=== PATIENT | male | born 1930 | race Caucasian/White ===

== ENCOUNTER → 2016-12-15 | Outpatient (CLI) | payer MEDICARE, MEDICAID ==
[~2016-12-15] MED LIST: ACE650RS PO; ALLO300T2 PO; LEVO100T8 PO; METF500T PO; SIMV-13 PO
[2016-12-15 16:27] LABS: Urine Bilirubin Negative (Negative); Urine Color Yellow (Yellow); Urine Glucose Normal (Normal); Urine Ketone Negative (Negative); Urine Nitrite Negative (Negative); Urine Urobilinogen Normal (Negative)
[2016-12-15 16:29] LABS: Basophils # (auto) 0.1 uL; Basophils % (auto) 0.7 % (0.0-2.0); Eosinophils # (auto) 0.7 uL; Eosinophils % (auto) 7.7 % (0.0-7.0); Hematocrit 42.3 % (41.0-53.0); Hemoglobin 13.4 g/dL (13.5-17.5); Lymphocytes # (auto) 2.2 uL; Lymphocytes % (auto) 25.5 % (10.0-50.0); Mean Corpuscular Hemoglobin 31.4 pg (28.0-32.0); Mean Corpuscular Hgb Conc. 31.7 g/dL (32.0-36.0); Mean Corpuscular Volume 99.2 fL (80.0-100.0); Mean Platelet Volume 10.3 fL (7.4-10.4); Monocytes # (auto) 0.9 uL; Monocytes % (auto) 10.3 % (0.0-12.0); Neutrophils # (auto) 4.9 uL; Neutrophils % (auto) 55.8 % (37.0-80.0); Platelet Count (auto) 166 10^3/uL (140-450); Red Cell Distribution Width 16.4 % (11.6-16.0); White Blood Cell 8.7 10^3/uL (4.4-10.8)
[2016-12-15 16:33] LABS: Urine Blood 1+ /uL (Negative)
[2016-12-15 16:59] LABS: Albumin 3.7 g/dL (3.4-5.0); Alkaline Phosphatase 72 U/L (45-117); Anion Gap 8 (5-15); Aspartate Aminotransferase 23 U/L (15-37); BUN/Creatinine Ratio 18.9; Bilirubin, Direct < 0.1 mg/dL (0-0.2); Bilirubin, Total 0.4 mg/dL (0.2-1.0); Blood Urea Nitrogen 35 mg/dL (7-18); Calcium 8.7 mg/dL (8.5-10.1); Carbon Dioxide 25 mmol/L (21-32); Chloride 107 mmol/L (98-107); Cholesterol 147 mg/dL (<200); GFR African American 45 mL/min; GFR Non-African American 37 mL/min; Glucose 103 mg/dL (74-106); HDL Cholesterol 35 mg/dL (40-59); LDL Cholesterol 77 mg/dL (<100); Potassium 4.6 mmol/L (3.5-5.1); Sodium 140 mmol/L (136-145); Total Protein 7.1 g/dL (6.4-8.2); Triglycerides 334 mg/dL (<150)
== END ==
LOC: LAB 13:31
PROVIDERS: ATTEND Internal Medicine Cardiovascular Disease
DX: I10 Essential (primary) hypertension (principal); E78.00 Pure hypercholesterolemia, unspecified; K74.1 Hepatic sclerosis; E11.9 Type 2 diabetes mellitus without complications; R97.20 Elevated prostate specific antigen [PSA]; R53.81 Other malaise; E03.9 Hypothyroidism, unspecified; D64.9 Anemia, unspecified; E55.9 Vitamin D deficiency, unspecified; N39.0 Urinary tract infection, site not specified
CPT/HCPCS: 36415; 80048; 80061; 80076; 81003; 82306; 83036; 84153; 84403; 84443; 85025

== ENCOUNTER → 2017-04-21 | Outpatient (CLI) | payer MEDICARE, MEDICAID ==
[2017-04-21 13:06] LABS: Calcium 8.8 mg/dL (8.5-10.1); Potassium 4.6 mmol/L (3.5-5.1)
[2017-04-21 13:09] LABS: BUN/Creatinine Ratio 18.9
== END | disposition home or self-care (01) ==
LOC: Rad HDHVI 08:17
PROVIDERS: ATTEND Internal Medicine Cardiovascular Disease
DX: I10 Essential (primary) hypertension (principal); E87.5 Hyperkalemia
CPT/HCPCS: 36415; 80048; 93306

== ENCOUNTER → 2017-05-20 | Outpatient (CLI) | payer MEDICARE, MEDICAID ==
[~2017-05-20] VITALS: Ht 177.8 cm; Wt 90.7 kg
[~2017-05-20] MED LIST changes: +ALL300T PO; +AML5T PO; +BENA10TA53 PO; +FINA1TAB10 OR; +HCTZ25T PO; +LEVO100I PO
[2017-05-20 08:25] VITALS: BP 150/82
[2017-05-20 08:50] VITALS: BP 142/80
[2017-05-20 12:27] LABS: Basophils # (auto) 0 uL; Basophils % (auto) 0.5 % (0.0-2.0); CONDITION Y; DEFINITIVE SEE PRINTOUT; Eosinophils # (auto) 0.8 uL; Eosinophils % (auto) 10.4 % (0.0-7.0); Hematocrit 37.5 % (41.0-53.0); Hemoglobin 12.7 g/dL (13.5-17.5); Lymphocytes # (auto) 1.8 uL; Lymphocytes % (auto) 23.5 % (10.0-50.0); Mean Corpuscular Hemoglobin 32.9 pg (28.0-32.0); Mean Corpuscular Hgb Conc. 33.8 g/dL (32.0-36.0); Mean Corpuscular Volume 97.3 fL (80.0-100.0); Monocytes # (auto) 0.8 uL; Monocytes % (auto) 10.1 % (0.0-12.0); Neutrophils # (auto) 4.1 uL; Neutrophils % (auto) 55.5 % (37.0-80.0); Platelet Count (auto) 147 10^3/uL (140-450); Red Cell Distribution Width 16.7 % (11.6-16.0); White Blood Cell 7.5 10^3/uL (4.4-10.8)
[2017-05-20 12:46] LABS: INR 0.97 (0.9-1.15); Partial Thromboplastin Time 26.1 sec (22.64-33.71); Prothrombin Time 10.6 sec (9.37-12.3)
[2017-05-20 12:57] LABS: BUN/Creatinine Ratio 16.3; Calcium 8.3 mg/dL (8.5-10.1); Potassium 4.4 mmol/L (3.5-5.1)
== END | disposition home or self-care (01) ==
LOC: Rad HDHVI 08:00
PROVIDERS: ATTEND Internal Medicine Cardiovascular Disease
DX: Z01.812 Encounter for preprocedural laboratory examination (principal); I70.0 Atherosclerosis of aorta; J98.11 Atelectasis; I10 Essential (primary) hypertension; I25.10 Atherosclerotic heart disease of native coronary artery without angina pectoris; J44.9 Chronic obstructive pulmonary disease, unspecified; D64.9 Anemia, unspecified; R07.9 Chest pain, unspecified; R79.1 Abnormal coagulation profile; Z95.0 Presence of cardiac pacemaker
CPT/HCPCS: 36415; 71020; 80048; 85025; 85610; 85730; 93005; G0463

== ENCOUNTER → 2017-05-21 | Day surgery (SDC) | payer MEDICARE, MEDICAID ==
[~2017-05-21] MED LIST changes: +ACET-1156 PO; +ANGIOMAX 250 MG VIAL IV ONE; +FURO40TA PO; +IOHEXOL 350 MG/ML 100ML IJ ONE; +LEVO88TA4 PO; +LIDOCAINE 2%HCL (LOCAL ANESTH.) INJ 20ML MDV ONE; +OMEP20CA74 PO; +POTA10SO11 GT; +POTA10TA51 PO; +POTA20TA53 PO; +SODIUM CHL 0.9% 0 ML ONE
== END | disposition home or self-care (01) ==
LOC: CATH 08:57
PROVIDERS: ATTEND Internal Medicine Cardiovascular Disease
DX: I25.10 Atherosclerotic heart disease of native coronary artery without angina pectoris (principal); I10 Essential (primary) hypertension; I48.91 Unspecified atrial fibrillation; N40.0 Benign prostatic hyperplasia without lower urinary tract symptoms; E78.5 Hyperlipidemia, unspecified; E03.9 Hypothyroidism, unspecified; M10.9 Gout, unspecified
CPT/HCPCS: 93458; C1760; C1894; J1644; J7030; Q9967; 99152

== ENCOUNTER → 2017-06-23 | Outpatient (CLI) | payer MEDICARE, MEDICAID ==
[~2017-06-23] VITALS: Ht 177.8 cm; Wt 90.7 kg
[~2017-06-23] MED LIST changes: -ANGIOMAX 250 MG VIAL IV ONE; -IOHEXOL 350 MG/ML 100ML IJ ONE; -LIDOCAINE 2%HCL (LOCAL ANESTH.) INJ 20ML MDV ONE; -SODIUM CHL 0.9% 0 ML ONE
[2017-06-23 10:20] VITALS: BP 124/68
[2017-06-23 11:20] VITALS: BP 141/66
[2017-06-23 12:27] LABS: INR 0.96 (0.9-1.15); Partial Thromboplastin Time 25.5 sec (22.64-33.71); Prothrombin Time 10.5 sec (9.37-12.3)
[2017-06-23 12:48] LABS: Basophils # (auto) 0.1 uL; Basophils % (auto) 0.6 % (0.0-2.0); CONDITION Y; DEFINITIVE SEE PRINTOUT; Eosinophils # (auto) 0.9 uL; Eosinophils % (auto) 10.7 % (0.0-7.0); Hematocrit 38.4 % (41.0-53.0); Hemoglobin 12.9 g/dL (13.5-17.5); Lymphocytes # (auto) 1.4 uL; Lymphocytes % (auto) 17.4 % (10.0-50.0); Mean Corpuscular Hemoglobin 33.1 pg (28.0-32.0); Mean Corpuscular Hgb Conc. 33.6 g/dL (32.0-36.0); Mean Corpuscular Volume 98.5 fL (80.0-100.0); Mean Platelet Volume 9.9 fL (7.4-10.4); Monocytes # (auto) 0.7 uL; Monocytes % (auto) 8.6 % (0.0-12.0); Neutrophils # (auto) 5.2 uL; Neutrophils % (auto) 62.7 % (37.0-80.0); Platelet Count (auto) 149 10^3/uL (140-450); Red Cell Distribution Width 16.9 % (11.6-16.0); White Blood Cell 8.3 10^3/uL (4.4-10.8)
[2017-06-23 12:49] LABS: Calcium 8.7 mg/dL (8.5-10.1); Potassium 4.4 mmol/L (3.5-5.1)
== END | disposition home or self-care (01) ==
LOC: CHF HDHVI 09:54
PROVIDERS: ATTEND Internal Medicine Cardiovascular Disease
DX: Z01.812 Encounter for preprocedural laboratory examination (principal); I10 Essential (primary) hypertension; D64.9 Anemia, unspecified; R79.1 Abnormal coagulation profile; I25.10 Atherosclerotic heart disease of native coronary artery without angina pectoris; I70.0 Atherosclerosis of aorta; E78.00 Pure hypercholesterolemia, unspecified
CPT/HCPCS: 36415; 80048; 85025; 85610; 85730; 93005; G0463

== ENCOUNTER → 2017-07-07 | Outpatient (CLI) | payer MEDICARE, MEDICAID ==
[~2017-07-07] MED LIST changes: -ACE650RS PO; -ALL300T PO; -FINA1TAB10 OR; -HCTZ25T PO; -LEVO100I PO; -LEVO100T8 PO; -POTA10SO11 GT; -POTA10TA51 PO
== END | disposition home or self-care (01) ==
LOC: Rad HDHVI 13:33
PROVIDERS: ATTEND Internal Medicine Cardiovascular Disease
DX: M79.89 Other specified soft tissue disorders (principal)
CPT/HCPCS: 93971

== ENCOUNTER → 2017-07-09 | Outpatient (CLI) | payer MEDICARE, MEDICAID ==
[2017-07-09 09:50] VITALS: BP 144/60
[2017-07-09 12:10] VITALS: BP 150/64
== END | disposition home or self-care (01) ==
LOC: CHF HDHVI 09:51
PROVIDERS: ATTEND Internal Medicine Cardiovascular Disease
DX: I42.9 Cardiomyopathy, unspecified (principal); R60.9 Edema, unspecified; Z95.810 Presence of automatic (implantable) cardiac defibrillator
CPT/HCPCS: G0463

== ENCOUNTER → 2017-07-22 | Outpatient (CLI) | payer MEDICARE, MEDICAID ==
[2017-07-22 16:32] LABS: Albumin 3.9 g/dL (3.4-5.0); Calcium 9.2 mg/dL (8.5-10.1); Potassium 4.2 mmol/L (3.5-5.1)
[2017-07-22 16:37] LABS: BUN/Creatinine Ratio 18.8; Bilirubin, Total 0.4 mg/dL (0.2-1.0); Total Protein 6.9 g/dL (6.4-8.2)
== END | disposition home or self-care (01) ==
LOC: LAB 09:13
PROVIDERS: ATTEND Internal Medicine Cardiovascular Disease
DX: I10 Essential (primary) hypertension (principal); E11.9 Type 2 diabetes mellitus without complications; R97.20 Elevated prostate specific antigen [PSA]
CPT/HCPCS: 36415; 80053; 83036; 84153

== ENCOUNTER → 2017-08-11 | Outpatient (CLI) | payer MEDICARE, MEDICAID ==
[~2017-08-11] MED LIST changes: +CYANOCOBALAMIN (B-12) 1000 MCG/1 ML VIAL IM ONE; +CYANOCOBALAMIN (B-12) 1000 MCG/1 ML VIAL ONE
[2017-08-11 11:25] VITALS: BP 138/88
[2017-08-11 13:01] VITALS: BP 147/92
[2017-08-11 16:21] LABS: Basophils # (auto) 0 uL; Basophils % (auto) 0.4 % (0.0-2.0); Eosinophils # (auto) 0.2 uL; Eosinophils % (auto) 1.5 % (0.0-7.0); Hematocrit 41.8 % (41.0-53.0); Hemoglobin 13.8 g/dL (13.5-17.5); Lymphocytes # (auto) 2.3 uL; Lymphocytes % (auto) 20.6 % (10.0-50.0); Mean Corpuscular Hemoglobin 33.7 pg (28.0-32.0); Mean Corpuscular Hgb Conc. 33.1 g/dL (32.0-36.0); Mean Corpuscular Volume 101.8 fL (80.0-100.0); Mean Platelet Volume 11.9 fL (6.9-10.8); Monocytes # (auto) 1.3 uL; Monocytes % (auto) 11.2 % (0.0-12.0); Neutrophils # (auto) 7.4 uL; Neutrophils % (auto) 66.3 % (37.0-80.0); Nucleated Red Blood Cells % 0.1 %; Platelet Count (auto) 100 10^3/uL (140-450); Red Cell Distribution Width 15.3 % (11.8-14.3); White Blood Cell 11.2 10^3/uL (4.4-10.8)
[2017-08-11 16:23] LABS: Albumin 3.8 g/dL (3.4-5.0); BUN/Creatinine Ratio 31.1; Bilirubin, Total 0.5 mg/dL (0.2-1.0); Calcium 9.2 mg/dL (8.5-10.1); Potassium 3.6 mmol/L (3.5-5.1); Total Protein 7.3 g/dL (6.4-8.2)
[2017-08-11 18:07] LABS: Macrocytosis Slight; Platelet Estimate Decreased
== END | disposition home or self-care (01) ==
LOC: CHF HDHVI 11:40
PROVIDERS: ATTEND Internal Medicine Cardiovascular Disease
DX: I10 Essential (primary) hypertension (principal); E83.42 Hypomagnesemia; D64.9 Anemia, unspecified; E03.9 Hypothyroidism, unspecified
CPT/HCPCS: 36415; 80053; 83735; 84443; 85025; 93005; 96372; G0463; J3420

== ENCOUNTER → 2017-08-13 | Outpatient (CLI) | payer MEDICARE, MEDICAID ==
[~2017-08-13] MED LIST changes: -CYANOCOBALAMIN (B-12) 1000 MCG/1 ML VIAL IM ONE; -CYANOCOBALAMIN (B-12) 1000 MCG/1 ML VIAL ONE; +POTASSIUM CHL 20 Meq TABLET PO ONE; +SODIUM CHLORIDE 0.9% 1,000 ML IV SCH
[2017-08-13 10:07] LABS: Basophils # (auto) 0 uL; Basophils % (auto) 0.5 % (0.0-2.0); Eosinophils # (auto) 0.1 uL; Eosinophils % (auto) 1.7 % (0.0-7.0); Hematocrit 40.4 % (41.0-53.0); Hemoglobin 13.5 g/dL (13.5-17.5); Lymphocytes # (auto) 1.8 uL; Lymphocytes % (auto) 20.6 % (10.0-50.0); Mean Corpuscular Hemoglobin 33.9 pg (28.0-32.0); Mean Corpuscular Hgb Conc. 33.4 g/dL (32.0-36.0); Mean Corpuscular Volume 101.5 fL (80.0-100.0); Mean Platelet Volume 10.9 fL (6.9-10.8); Monocytes # (auto) 0.6 uL; Monocytes % (auto) 6.9 % (0.0-12.0); Neutrophils # (auto) 6.1 uL; Neutrophils % (auto) 70.3 % (37.0-80.0); Platelet Count (auto) 91 10^3/uL (140-450); Red Cell Distribution Width 15.2 % (11.8-14.3); White Blood Cell 8.7 10^3/uL (4.4-10.8)
[2017-08-13 10:12] LABS: Magnesium 2.6 mg/dL (1.6-2.6); Potassium 3.4 mmol/L (3.5-5.1)
[2017-08-13 10:14] LABS: Macrocytosis Slight; Platelet Estimate Decreased
[2017-08-13 12:15] VITALS: BP 115/72
== END | disposition home or self-care (01) ==
LOC: CHF HDHVI 09:12
PROVIDERS: ATTEND Internal Medicine Cardiovascular Disease
DX: E87.6 Hypokalemia (principal); R94.4 Abnormal results of kidney function studies; E83.42 Hypomagnesemia; D64.9 Anemia, unspecified
CPT/HCPCS: 36415; 82565; 83735; 84132; 84520; 85025; 93005; 96360; 96361; G0463

== ENCOUNTER → 2017-08-17 | Outpatient (CLI) | payer MEDICARE, MEDICAID ==
[~2017-08-17] MED LIST changes: +POTASSIUM CHL 10 Meq TABLET PO ONE; -SODIUM CHLORIDE 0.9% 1,000 ML IV SCH
[2017-08-17 10:40] VITALS: BP 114/72
== END | disposition home or self-care (01) ==
LOC: CHF HDHVI 09:36
PROVIDERS: ATTEND Internal Medicine Cardiovascular Disease
DX: I50.9 Heart failure, unspecified (principal)
CPT/HCPCS: 93005; G0463

== ENCOUNTER → 2017-08-25 | Outpatient (CLI) | payer MEDICARE, MEDICAID ==
[~2017-08-25] MED LIST changes: +CYANOCOBALAMIN (B-12) 1000 MCG/1 ML VIAL IM ONE; +CYANOCOBALAMIN (B-12) 1000 MCG/1 ML VIAL ONE; -POTASSIUM CHL 10 Meq TABLET PO ONE; -POTASSIUM CHL 20 Meq TABLET PO ONE
[2017-08-25 09:30] VITALS: BP 146/82
[2017-08-25 13:02] LABS: BUN/Creatinine Ratio 12.9; Calcium 8.7 mg/dL (8.5-10.1); Magnesium 1.9 mg/dL (1.6-2.6); Potassium 4.7 mmol/L (3.5-5.1)
== END | disposition home or self-care (01) ==
LOC: CHF HDHVI 09:04
PROVIDERS: ATTEND Internal Medicine Cardiovascular Disease
DX: I10 Essential (primary) hypertension (principal); E83.42 Hypomagnesemia
CPT/HCPCS: 36415; 80048; 83735; 96372; G0463; J3420

== ENCOUNTER → 2017-09-01 | Outpatient (CLI) | payer MEDICARE, MEDICAID ==
[~2017-09-01] MED LIST changes: +MAGNESIUM OXIDE 400 MG TAB ONE; +MAGNESIUM OXIDE 400 MG TAB PO ONE; +TESTOSTERONE CYPIONATE 200 MG/ML 1ML VIAL IM ONE
[2017-09-01 09:00] VITALS: BP 137/67
[2017-09-02 11:00] VITALS: BP 147/88
== END | disposition home or self-care (01) ==
LOC: CHF HDHVI 09:03
PROVIDERS: ATTEND Internal Medicine Cardiovascular Disease
DX: I50.9 Heart failure, unspecified (principal); E29.1 Testicular hypofunction
CPT/HCPCS: 96372; G0463; J1071; J3420

== ENCOUNTER → 2017-09-15 | Outpatient (CLI) | payer MEDICARE, MEDICAID ==
[~2017-09-15] MED LIST changes: -CYANOCOBALAMIN (B-12) 1000 MCG/1 ML VIAL IM ONE; -CYANOCOBALAMIN (B-12) 1000 MCG/1 ML VIAL ONE; -MAGNESIUM OXIDE 400 MG TAB ONE; -MAGNESIUM OXIDE 400 MG TAB PO ONE
[2017-09-15 09:45] VITALS: BP 137/63
[2017-09-15 10:15] VITALS: BP 144/65
== END | disposition home or self-care (01) ==
LOC: CHF HDHVI 10:03
PROVIDERS: ATTEND Internal Medicine Cardiovascular Disease
DX: I50.9 Heart failure, unspecified (principal); E29.1 Testicular hypofunction
CPT/HCPCS: 96372; G0463; J1071

== ENCOUNTER → 2017-10-06 | Outpatient (CLI) | payer MEDICARE, MEDICAID ==
[~2017-10-06] VITALS: Ht 30.5 cm; Wt 0.5 kg
[2017-10-06 09:45] VITALS: BP 137/63
[2017-10-06 10:15] VITALS: BP 144/65
[2017-10-06 13:15] LABS: Potassium 4.4 mmol/L (3.5-5.1)
== END | disposition home or self-care (01) ==
LOC: CHF HDHVI 08:57
PROVIDERS: ATTEND Internal Medicine Cardiovascular Disease
DX: I25.10 Atherosclerotic heart disease of native coronary artery without angina pectoris (principal); E29.1 Testicular hypofunction; E55.9 Vitamin D deficiency, unspecified; R94.4 Abnormal results of kidney function studies; I95.9 Hypotension, unspecified
CPT/HCPCS: 36415; 82565; 82607; 84132; 84520; 96372; G0463; J1071

== ENCOUNTER → 2017-12-07 | Outpatient (CLI) | payer MEDICARE, MEDICAID ==
[2017-12-07 09:45] VITALS: BP 139/66
[2017-12-07 10:15] VITALS: BP 130/64
== END | disposition home or self-care (01) ==
LOC: CHF HDHVI 09:46
PROVIDERS: ATTEND Internal Medicine Cardiovascular Disease
DX: I25.10 Atherosclerotic heart disease of native coronary artery without angina pectoris (principal); E29.1 Testicular hypofunction
CPT/HCPCS: 96372; G0463; J1071

== ENCOUNTER → 2018-02-11 | Outpatient (CLI) | payer MEDICARE, MEDICAID ==
[~2018-02-11] MED LIST changes: -TESTOSTERONE CYPIONATE 200 MG/ML 1ML VIAL IM ONE
== END | disposition home or self-care (01) ==
LOC: Rad HDHVI 09:06
PROVIDERS: ATTEND Internal Medicine Cardiovascular Disease
DX: I08.3 Combined rheumatic disorders of mitral, aortic and tricuspid valves (principal); E11.9 Type 2 diabetes mellitus without complications; I10 Essential (primary) hypertension
CPT/HCPCS: 93306

== ENCOUNTER → 2018-03-04 | Outpatient (CLI) | payer MEDICARE, MEDICAID ==
[~2018-03-04] VITALS: Ht 177.8 cm; Wt 84.4 kg
[~2018-03-04] MED LIST changes: +ADENOSINE 71 MG in GIVE UN-DILUTED 0 ML IV ONE; +ADENOSINE 90 MG/30 ML INJ IV ONE
== END | disposition home or self-care (01) ==
LOC: Rad HDHVI 09:25
PROVIDERS: ATTEND Internal Medicine Cardiovascular Disease
DX: E11.21 Type 2 diabetes mellitus with diabetic nephropathy (principal); E11.22 Type 2 diabetes mellitus with diabetic chronic kidney disease; I12.9 Hypertensive chronic kidney disease with stage 1 through stage 4 chronic kidney disease, or unspecified chronic kidney disease; N18.3 Chronic kidney disease, stage 3 (moderate); R07.9 Chest pain, unspecified; I08.3 Combined rheumatic disorders of mitral, aortic and tricuspid valves
CPT/HCPCS: 78452; 93005; 96374; 96375; J0153

== ENCOUNTER 2018-03-29 16:17 | Inpatient (IN) | payer MEDICARE, MEDICAID ==
[~2018-03-29] VITALS: Ht 177.8 cm; Wt 123.0 kg
[~2018-03-29 16:17] MED LIST changes: -SODIUM CHLORIDE 0.9% 1,000 ML IV SCH
[2018-03-29 16:25] VITALS: BP 113/69
[2018-03-29] MEDS ORDERED: MORPHINE SULFATE 4 MG/ML SYR/VIAL IV PRN (17:15)
[2018-03-29] MEDS ORDERED: DEXTROSE (50%) 50ML SYRG IV PRN (17:15)
[2018-03-29] MEDS ORDERED: NITROGLYCERIN 0.4 MG SL TAB SL PRN (17:15)
[2018-03-29] MEDS: SODIUM CHLORIDE 0.9% 1,000 ML IV SCH (17:38)
[2018-03-29] MEDS ORDERED: SODIUM POLYSTYRENE SULF 15GM/60ML SUSP PO ONE ×2 (19:00→19:15)
[2018-03-29 20:00] VITALS: BP 109/58
[2018-03-29 22:00] VITALS: BP 109/50
[2018-03-29] MEDS: InsuLIN REG 1unit/0.01ml Soln (100units/ml) SC SCH (22:00)
[2018-03-29] MEDS: FAMOTIDINE 20 MG TAB PO SCH (22:16)
[2018-03-29] MEDS: SOTALOL HCL 80 MG TAB PO SCH (22:18)
[2018-03-29] MEDS: ACCU-CHEK COMFORT CURVE STRIP VI SCH (22:21)
[2018-03-30] MEDS: SODIUM CHLORIDE 0.9% 1,000 ML IV SCH ×3 (03:15→23:51)
[2018-03-30 05:15] VITALS: BP 113/72
[2018-03-30 05:35] LABS: Eosinophils # (auto) 0.4 uL; Lymphocytes # (auto) 0.6 uL; White Blood Cell 7.9 10^3/uL (4.4-10.8)
[2018-03-30 05:41] LABS: Basophils # (auto) 0.1 uL; Basophils % (auto) 1.1 % (0.0-2.0); Eosinophils % (auto) 4.6 % (0.0-7.0); Hematocrit 32.2 % (41.0-53.0); Hemoglobin 10.8 g/dL (13.5-17.5); Lymphocytes % (auto) 7.1 % (10.0-50.0); Mean Corpuscular Hemoglobin 34.3 pg (28.0-32.0); Mean Corpuscular Hgb Conc. 33.6 g/dL (32.0-36.0); Mean Corpuscular Volume 101.8 fL (80.0-100.0); Monocytes # (auto) 0.9 uL; Monocytes % (auto) 11.5 % (0.0-12.0); Neutrophils % (auto) 75.7 % (37.0-80.0); Platelet Count (auto) 76 10^3/uL (140-450); Red Blood Cells 3.16 10^6/uL (4.5-5.90); Red Cell Distribution Width 16.1 % (11.8-14.3)
[2018-03-30 06:07] LABS: BUN/Creatinine Ratio 23.8
[2018-03-30] MEDS: InsuLIN REG 1unit/0.01ml Soln (100units/ml) SC SCH ×4 (06:31→21:46)
[2018-03-30] MEDS: ACCU-CHEK COMFORT CURVE STRIP VI SCH ×4 (06:31→21:46)
[2018-03-30 08:00] VITALS: BP_SYST 112; BP_SYST 127; BP_DIAS 70; BP_DIAS 79
[2018-03-30] MEDS: SOTALOL HCL 80 MG TAB PO SCH ×2 (09:27→21:39)
[2018-03-30] MEDS: FAMOTIDINE 20 MG TAB PO SCH ×2 (09:28→21:39)
[2018-03-30] MEDS: guaiFENesin 200 MG/10 ML UD GT PRN ×2 (11:08→18:28)
[2018-03-30 12:31] VITALS: BP 102/69
[2018-03-30] MEDS ORDERED: SODIUM POLYSTYRENE SULF 15GM/60ML SUSP PO ONE (14:15)
[2018-03-30 16:33] VITALS: BP 112/72
[2018-03-30] MEDS ORDERED: LORazepam 0.5 MG TAB PO PRN (19:15)
[2018-03-30 20:00] VITALS: BP 102/62
[2018-03-30 21:42] VITALS: BP 100/62
[2018-03-31] VITALS (7 sets, daily range): BP systolic 92–122; BP diastolic 52–71
[2018-03-31] MEDS: ACCU-CHEK COMFORT CURVE STRIP VI SCH ×4 (06:26→22:20)
[2018-03-31] MEDS: InsuLIN REG 1unit/0.01ml Soln (100units/ml) SC SCH ×4 (06:26→22:00)
[2018-03-31] MEDS: SODIUM CHLORIDE 0.9% 1,000 ML IV SCH ×2 (09:15→19:15)
[2018-03-31] MEDS: SOTALOL HCL 80 MG TAB PO SCH ×2 (10:00→22:20)
[2018-03-31] MEDS: FAMOTIDINE 20 MG TAB PO SCH ×2 (10:30→22:20)
[2018-03-31 18:45] LABS: Basophils # (auto) 0.1 uL; Lymphocytes # (auto) 1.5 uL; Monocytes # (auto) 1.3 uL; Nucleated Red Blood Cells % 0.1 %; Red Blood Cells 3.53 10^6/uL (4.5-5.90); Red Cell Distribution Width 16.5 % (11.8-14.3)
[2018-03-31 18:46] LABS: Basophils % (auto) 0.6 % (0.0-2.0); Eosinophils # (auto) 0.2 uL; Eosinophils % (auto) 2.4 % (0.0-7.0); Hematocrit 36.2 % (41.0-53.0); Lymphocytes % (auto) 14.4 % (10.0-50.0); Mean Corpuscular Hemoglobin 34.1 pg (28.0-32.0); Mean Corpuscular Hgb Conc. 33.3 g/dL (32.0-36.0); Mean Corpuscular Volume 102.4 fL (80.0-100.0); Monocytes % (auto) 12.5 % (0.0-12.0); Neutrophils # (auto) 7.2 uL; Neutrophils % (auto) 70.1 % (37.0-80.0); Platelet Count (auto) 114 10^3/uL (140-450); White Blood Cell 10.2 10^3/uL (4.4-10.8)
[2018-03-31 19:04] LABS: BUN/Creatinine Ratio 23.7; Calcium 8.2 mg/dL (8.5-10.1); Potassium 4.8 mmol/L (3.5-5.1)
[2018-04-01 05:00] VITALS: BP 121/72
[2018-04-01] MEDS: SODIUM CHLORIDE 0.9% 1,000 ML IV SCH ×2 (05:27→15:38)
[2018-04-01] MEDS: InsuLIN REG 1unit/0.01ml Soln (100units/ml) SC SCH ×4 (06:12→22:00)
[2018-04-01] MEDS: ACCU-CHEK COMFORT CURVE STRIP VI SCH ×4 (06:12→22:15)
[2018-04-01 08:00] VITALS: BP 99/63
[2018-04-01 09:28] VITALS: BP 99/53
[2018-04-01] MEDS: FAMOTIDINE 20 MG TAB PO SCH ×2 (10:00→22:15)
[2018-04-01] MEDS: SOTALOL HCL 80 MG TAB PO SCH ×2 (10:00→22:15)
[2018-04-01 13:00] VITALS: BP 113/73
[2018-04-01 16:55] VITALS: BP 117/69
[2018-04-01 18:59] LABS: BUN/Creatinine Ratio 24.7; Calcium 8.1 mg/dL (8.5-10.1); Potassium 4.8 mmol/L (3.5-5.1)
[2018-04-01 22:00] VITALS: BP 128/81
[2018-04-02] MEDS: SODIUM CHLORIDE 0.9% 1,000 ML IV SCH ×2 (00:33→11:57)
[2018-04-02 05:15] VITALS: BP 100/61
[2018-04-02] MEDS: InsuLIN REG 1unit/0.01ml Soln (100units/ml) SC SCH ×3 (06:25→17:00)
[2018-04-02] MEDS: ACCU-CHEK COMFORT CURVE STRIP VI SCH ×3 (06:26→17:36)
[2018-04-02 08:00] VITALS: BP 122/75
[2018-04-02 08:51] VITALS: BP 124/49
[2018-04-02 09:02] VITALS: BP 122/75
[2018-04-02] MEDS ORDERED: DOCUSATE SOD 100 MG CAP PO SCH (10:00)
[2018-04-02] MEDS: SOTALOL HCL 80 MG TAB PO SCH (10:05)
[2018-04-02] MEDS: FAMOTIDINE 20 MG TAB PO SCH (10:05)
[2018-04-02 13:00] VITALS: BP 107/63
[2018-04-02 15:00] LABS: BUN/Creatinine Ratio 24.2; Potassium 4.6 mmol/L (3.5-5.1)
[2018-04-02 16:22] VITALS: BP 122/75
== END 2018-04-02 18:38 | disposition home health service (06) | DRG 682 ==
LOC: CENTRAL 16:17 → TELE-CENTR 03-30 01:10
PROVIDERS: ADMIT Internal Medicine Cardiovascular Disease; ATTEND Internal Medicine Cardiovascular Disease
DX: N17.9 Acute kidney failure, unspecified (principal); I50.23 Acute on chronic systolic (congestive) heart failure; I42.0 Dilated cardiomyopathy; E87.5 Hyperkalemia; I49.5 Sick sinus syndrome; E86.9 Volume depletion, unspecified; I48.91 Unspecified atrial fibrillation; D64.9 Anemia, unspecified; E78.5 Hyperlipidemia, unspecified; I25.10 Atherosclerotic heart disease of native coronary artery without angina pectoris; K52.9 Noninfective gastroenteritis and colitis, unspecified; I11.0 Hypertensive heart disease with heart failure; Z95.810 Presence of automatic (implantable) cardiac defibrillator; Z71.3 Dietary counseling and surveillance
CPT/HCPCS: 36415; 71046; 74176; 80048; 80053; 80061; 81003; 82306; 82607; 82962; 83036; 83735; 83880; 84153; 84403; 84439; 84443; 85025; 87081; 93005; 96360; 96361; 97163; G0463; J1815

== ENCOUNTER → 2018-03-29 | Outpatient (CLI) | payer MEDICARE, MEDICAID ==
[~2018-03-29] MED LIST changes: -ADENOSINE 71 MG in GIVE UN-DILUTED 0 ML IV ONE; -ADENOSINE 90 MG/30 ML INJ IV ONE; +SODIUM CHLORIDE 0.9% 1,000 ML IV SCH
[2018-03-29 10:41] LABS: Basophils # (auto) 0.1 uL; Basophils % (auto) 0.5 % (0.0-2.0); Eosinophils # (auto) 0.6 uL; Eosinophils % (auto) 5.4 % (0.0-7.0); Hematocrit 37.1 % (41.0-53.0); Hemoglobin 11.9 g/dL (13.5-17.5); Lymphocytes # (auto) 1.6 uL; Lymphocytes % (auto) 13.6 % (10.0-50.0); Mean Corpuscular Hemoglobin 32.9 pg (28.0-32.0); Mean Corpuscular Hgb Conc. 32.1 g/dL (32.0-36.0); Mean Corpuscular Volume 102.7 fL (80.0-100.0); Monocytes # (auto) 1.2 uL; Monocytes % (auto) 10.8 % (0.0-12.0); Neutrophils # (auto) 7.9 uL; Neutrophils % (auto) 69.7 % (37.0-80.0); Platelet Count (auto) 118 10^3/uL (140-450); Red Blood Cells 3.61 10^6/uL (4.5-5.90); Red Cell Distribution Width 16.7 % (11.8-14.3); White Blood Cell 11.4 10^3/uL (4.4-10.8)
[2018-03-29 10:43] LABS: Urine Blood Negative /uL (Negative); Urine Specific Gravity 1.014 (1.001-1.035)
[2018-03-29 10:58] LABS: Free T4 (Free Thyroxine) 1.36 ng/dL (0.89-1.76); Prostate Specific Antigen 2.64 ng/mL (0.0-4.0)
[2018-03-29 12:01] LABS: Albumin 3.8 g/dL (3.4-5.0); BUN/Creatinine Ratio 19.8; Bilirubin, Total 0.5 mg/dL (0.2-1.0); Calcium 8.5 mg/dL (8.5-10.1); Magnesium 2.5 mg/dL (1.6-2.6)
[2018-03-29 13:12] LABS: Potassium 5.6 mmol/L (3.5-5.1)
[2018-03-29 16:05] VITALS: BP 111/63
== END | disposition home or self-care (01) ==
LOC: Rad HDHVI 08:54
PROVIDERS: ATTEND Internal Medicine Cardiovascular Disease
DX: I13.0 Hypertensive heart and chronic kidney disease with heart failure and stage 1 through stage 4 chronic kidney disease, or unspecified chronic kidney disease (principal); E11.22 Type 2 diabetes mellitus with diabetic chronic kidney disease; E11.42 Type 2 diabetes mellitus with diabetic polyneuropathy; N18.3 Chronic kidney disease, stage 3 (moderate); I50.21 Acute systolic (congestive) heart failure; E78.5 Hyperlipidemia, unspecified; D64.9 Anemia, unspecified; E03.9 Hypothyroidism, unspecified; E55.9 Vitamin D deficiency, unspecified; R53.81 Other malaise; N28.1 Cyst of kidney, acquired; K40.90 Unilateral inguinal hernia, without obstruction or gangrene, not specified as recurrent; J90 Pleural effusion, not elsewhere classified; K57.30 Diverticulosis of large intestine without perforation or abscess without bleeding; K44.9 Diaphragmatic hernia without obstruction or gangrene; I70.0 Atherosclerosis of aorta; R18.8 Other ascites; R97.20 Elevated prostate specific antigen [PSA]; D51.9 Vitamin B12 deficiency anemia, unspecified; R94.31 Abnormal electrocardiogram [ECG] [EKG]; N39.0 Urinary tract infection, site not specified; M47.896 Other spondylosis, lumbar region; I48.91 Unspecified atrial fibrillation; Z95.810 Presence of automatic (implantable) cardiac defibrillator
CPT/HCPCS: 36415; 71046; 74176; 80053; 80061; 81003; 82306; 82607; 83036; 83735; 84153; 84403; 84439; 84443; 85025; 93005; 96360; 96361; G0463

== ENCOUNTER → 2018-04-07 | Outpatient (CLI) | payer MEDICARE, MEDICAID ==
[~2018-04-07] MED LIST changes: +IOHEXOL 350 MG/ML 100ML IJ ONE; +READI-CAT 2 (BARIUM SULF)(VANILLA SMOOTHIE) 450ML ONE
[2018-04-07 15:45] VITALS: BP 114/68
[2018-04-07 16:00] LABS: Potassium 4.6 mmol/L (3.5-5.1)
== END | disposition home or self-care (01) ==
LOC: Rad HDHVI 12:03
PROVIDERS: ATTEND Internal Medicine Cardiovascular Disease
DX: J90 Pleural effusion, not elsewhere classified (principal); R18.8 Other ascites; R10.9 Unspecified abdominal pain; I13.0 Hypertensive heart and chronic kidney disease with heart failure and stage 1 through stage 4 chronic kidney disease, or unspecified chronic kidney disease; I50.23 Acute on chronic systolic (congestive) heart failure; E11.22 Type 2 diabetes mellitus with diabetic chronic kidney disease; N18.3 Chronic kidney disease, stage 3 (moderate); R14.0 Abdominal distension (gaseous); D69.6 Thrombocytopenia, unspecified; I25.10 Atherosclerotic heart disease of native coronary artery without angina pectoris; I48.0 Paroxysmal atrial fibrillation; E78.5 Hyperlipidemia, unspecified; E03.9 Hypothyroidism, unspecified; E87.6 Hypokalemia; Z79.899 Other long term (current) drug therapy; Z95.810 Presence of automatic (implantable) cardiac defibrillator
CPT/HCPCS: 36415; 74177; 82565; 83880; 84132; 84520; 96360; 96361; G0463; Q9967

== ENCOUNTER → 2018-04-23 | Outpatient (CLI) | payer MEDICARE, MEDICAID ==
[~2018-04-23] MED LIST changes: -IOHEXOL 350 MG/ML 100ML IJ ONE; -READI-CAT 2 (BARIUM SULF)(VANILLA SMOOTHIE) 450ML ONE
== END | disposition home or self-care (01) ==
LOC: Rad HDHVI 10:04
PROVIDERS: ATTEND Internal Medicine Cardiovascular Disease
DX: I08.3 Combined rheumatic disorders of mitral, aortic and tricuspid valves (principal); I11.0 Hypertensive heart disease with heart failure; I50.23 Acute on chronic systolic (congestive) heart failure; I25.5 Ischemic cardiomyopathy; E87.6 Hypokalemia; E11.9 Type 2 diabetes mellitus without complications
CPT/HCPCS: 36415; 83036; 84132; 93306

== ENCOUNTER 2018-04-27 13:47 | Inpatient (IN) | payer MEDICARE, MEDICAID ==
[~2018-04-27] VITALS: Ht 177.8 cm; Wt 71.0 kg
[2018-04-27 15:06] LABS: Basophils # (auto) 0 uL; Eosinophils # (auto) 0.2 uL; Lymphocytes # (auto) 1.2 uL; Mean Corpuscular Volume 101.6 fL (80.0-100.0); Monocytes # (auto) 0.9 uL; White Blood Cell 7.5 10^3/uL (4.4-10.8)
[2018-04-27 15:07] LABS: Albumin 3.8 g/dL (3.4-5.0); BUN/Creatinine Ratio 18.4; Calcium 8.4 mg/dL (8.5-10.1); Potassium 5.2 mmol/L (3.5-5.1)
[2018-04-27 15:08] LABS: Basophils % (auto) 0.4 % (0.0-2.0); Eosinophils % (auto) 2.6 % (0.0-7.0); Hematocrit 37.4 % (41.0-53.0); Hemoglobin 12.4 g/dL (13.5-17.5); Lymphocytes % (auto) 16.1 % (10.0-50.0); Mean Corpuscular Hemoglobin 33.7 pg (28.0-32.0); Mean Corpuscular Hgb Conc. 33.1 g/dL (32.0-36.0); Monocytes % (auto) 12.3 % (0.0-12.0); Neutrophils # (auto) 5.1 uL; Neutrophils % (auto) 68.6 % (37.0-80.0); Platelet Count (auto) 65 10^3/uL (140-450); Red Blood Cells 3.68 10^6/uL (4.5-5.90); Red Cell Distribution Width 15.8 % (11.8-14.3)
[2018-04-27 15:12] LABS: Bilirubin, Total 0.4 mg/dL (0.2-1.0)
[2018-04-27] MEDS ORDERED: ACETAMINOPHEN 500 MG TAB PO PRN (18:30)
[2018-04-27] MEDS ORDERED: NITROGLYCERIN 0.4 MG SL TAB SL PRN (18:30)
[2018-04-27] MEDS ORDERED: MORPHINE SULF(PF) 0.5MG/ML 10ML VIAL IV PRN (18:30)
[2018-04-27 23:55] VITALS: BP 116/60
[2018-04-28] VITALS (7 sets, daily range): BP systolic 93–116; BP diastolic 50–69
[2018-04-28] MEDS: TAMSULOSIN HYDROCHLORIDE 0.4 MG CAP PO SCH (10:28)
[2018-04-28] MEDS: CHOLECALCIFEROL (VITD3) 1,000 UNIT TAB PO SCH (10:28)
[2018-04-28] MEDS: PANTOPRAZOLE 40 MG TAB PO SCH (10:28)
[2018-04-28] MEDS: LEVOTHYROXINE SODIUM 88 MCG TAB PO SCH (10:28)
[2018-04-28] MEDS: AMIODARONE HCL 200 MG TAB PO SCH (10:29)
[2018-04-28] MEDS: amLODIPine BESYLATE 5 MG TAB PO SCH (10:29)
[2018-04-28] MEDS: SODIUM CHLORIDE 0.9% 1,000 ML IV SCH (18:30)
[2018-04-28] MEDS: B-COMPLEX W/ C & FOLIC ACID(NEPHROVITE TAB) PO SCH (22:07)
[2018-04-28] MEDS: LORazepam 0.5 MG TAB PO PRN (22:07)
[2018-04-29] VITALS (7 sets, daily range): BP systolic 107–123; BP diastolic 49–68
[2018-04-29] MEDS: SODIUM CHLORIDE 0.9% 1,000 ML IV SCH (04:30)
[2018-04-29] MEDS: B-COMPLEX W/ C & FOLIC ACID(NEPHROVITE TAB) PO SCH (10:47)
[2018-04-29] MEDS: CHOLECALCIFEROL (VITD3) 1,000 UNIT TAB PO SCH (10:47)
[2018-04-29] MEDS: AMIODARONE HCL 200 MG TAB PO SCH (10:47)
[2018-04-29] MEDS: amLODIPine BESYLATE 5 MG TAB PO SCH (10:48)
[2018-04-29] MEDS: LEVOTHYROXINE SODIUM 88 MCG TAB PO SCH (10:49)
[2018-04-29] MEDS: TAMSULOSIN HYDROCHLORIDE 0.4 MG CAP PO SCH (10:49)
[2018-04-29] MEDS: PANTOPRAZOLE 40 MG TAB PO SCH (10:49)
[2018-04-29 12:09] LABS: Albumin 3.4 g/dL (3.4-5.0); BUN/Creatinine Ratio 20.3; Calcium 8.5 mg/dL (8.5-10.1)
[2018-04-29 12:17] LABS: Bilirubin, Total 0.5 mg/dL (0.2-1.0); Total Protein 6.7 g/dL (6.4-8.2)
[2018-04-29] MEDS: FUROSEMIDE 40 MG/4 ML VIAL IV SCH (18:00)
[2018-04-29] MEDS: SODIUM CITR/CITRIC ACID ORAL SOLN 30 ML PO SCH (18:59)
[2018-04-29] MEDS: LORazepam 0.5 MG TAB PO PRN (21:44)
[2018-04-29] MEDS: POTASSIUM CHL 20 Meq TABLET PO SCH (22:00)
[2018-04-29] MEDS: IPRATROPIUM BROM 0.5 MG/2.5ML INH SOL NEB SCH (23:09)
[2018-04-30] VITALS (7 sets, daily range): BP systolic 107–121; BP diastolic 54–63
[2018-04-30] MEDS: FUROSEMIDE 40 MG/4 ML VIAL IV SCH ×2 (06:01→18:00)
[2018-04-30] MEDS: IPRATROPIUM BROM 0.5 MG/2.5ML INH SOL NEB SCH ×3 (06:48→23:00)
[2018-04-30] MEDS: B-COMPLEX W/ C & FOLIC ACID(NEPHROVITE TAB) PO SCH (09:54)
[2018-04-30] MEDS: LEVOTHYROXINE SODIUM 88 MCG TAB PO SCH (09:55)
[2018-04-30] MEDS: amLODIPine BESYLATE 5 MG TAB PO SCH (09:55)
[2018-04-30] MEDS: PANTOPRAZOLE 40 MG TAB PO SCH (09:55)
[2018-04-30] MEDS: AMIODARONE HCL 200 MG TAB PO SCH (09:55)
[2018-04-30] MEDS: TAMSULOSIN HYDROCHLORIDE 0.4 MG CAP PO SCH (09:55)
[2018-04-30] MEDS: CHOLECALCIFEROL (VITD3) 1,000 UNIT TAB PO SCH (09:55)
[2018-04-30] MEDS: SODIUM CITR/CITRIC ACID ORAL SOLN 30 ML PO SCH ×3 (09:56→18:01)
[2018-04-30] MEDS: POTASSIUM CHL 20 Meq TABLET PO SCH ×2 (10:00→22:00)
[2018-04-30] MEDS: DOBUTamine 1000MCG/ML 250 ML IV SCH (15:39)
[2018-05-01] VITALS (7 sets, daily range): BP systolic 112–134; BP diastolic 43–65
[2018-05-01] MEDS: DOBUTamine 1000MCG/ML 250 ML IV SCH ×3 (00:46→19:34)
[2018-05-01] MEDS: FUROSEMIDE 40 MG/4 ML VIAL IV SCH ×2 (05:29→18:13)
[2018-05-01] MEDS: IPRATROPIUM BROM 0.5 MG/2.5ML INH SOL NEB SCH ×3 (06:13→22:20)
[2018-05-01 09:12] LABS: Albumin 3.1 g/dL (3.4-5.0); Calcium 8.2 mg/dL (8.5-10.1); Potassium 4.3 mmol/L (3.5-5.1)
[2018-05-01 09:14] LABS: BUN/Creatinine Ratio 20.1
[2018-05-01 09:17] LABS: Bilirubin, Total 0.7 mg/dL (0.2-1.0); Total Protein 6.2 g/dL (6.4-8.2)
[2018-05-01] MEDS: TAMSULOSIN HYDROCHLORIDE 0.4 MG CAP PO SCH (10:19)
[2018-05-01] MEDS: PANTOPRAZOLE 40 MG TAB PO SCH (10:19)
[2018-05-01] MEDS: CHOLECALCIFEROL (VITD3) 1,000 UNIT TAB PO SCH (10:19)
[2018-05-01] MEDS: AMIODARONE HCL 200 MG TAB PO SCH (10:20)
[2018-05-01] MEDS: POTASSIUM CHL 20 Meq TABLET PO SCH (10:20)
[2018-05-01] MEDS: amLODIPine BESYLATE 5 MG TAB PO SCH (10:21)
[2018-05-01] MEDS: LEVOTHYROXINE SODIUM 88 MCG TAB PO SCH (10:21)
[2018-05-01] MEDS: B-COMPLEX W/ C & FOLIC ACID(NEPHROVITE TAB) PO SCH (10:21)
[2018-05-01] MEDS: SODIUM CITR/CITRIC ACID ORAL SOLN 30 ML PO SCH ×3 (10:22→18:13)
[2018-05-01] MEDS: POTASSIUM CHL 10% (20 MEQ/15ML) 15ml ORAL SOLN PO SCH ×2 (10:44→21:52)
[2018-05-01] MEDS ORDERED: MILK OF MAGNESIA 30ML SUSP PO PRN (18:30)
[2018-05-02] MEDS: DOBUTamine 1000MCG/ML 250 ML IV SCH ×2 (04:51→16:23)
[2018-05-02 05:03] VITALS: BP 123/58
[2018-05-02] MEDS: FUROSEMIDE 40 MG/4 ML VIAL IV SCH ×2 (05:40→18:01)
[2018-05-02] MEDS: IPRATROPIUM BROM 0.5 MG/2.5ML INH SOL NEB SCH ×3 (06:12→22:05)
[2018-05-02 08:00] VITALS: BP 114/64
[2018-05-02 09:07] VITALS: BP 114/64
[2018-05-02] MEDS: AMIODARONE HCL 200 MG TAB PO SCH (09:48)
[2018-05-02] MEDS: TAMSULOSIN HYDROCHLORIDE 0.4 MG CAP PO SCH (09:48)
[2018-05-02] MEDS: B-COMPLEX W/ C & FOLIC ACID(NEPHROVITE TAB) PO SCH (09:48)
[2018-05-02] MEDS: POTASSIUM CHL 10% (20 MEQ/15ML) 15ml ORAL SOLN PO SCH ×2 (09:48→22:45)
[2018-05-02] MEDS: amLODIPine BESYLATE 5 MG TAB PO SCH (09:48)
[2018-05-02] MEDS: CHOLECALCIFEROL (VITD3) 1,000 UNIT TAB PO SCH (09:49)
[2018-05-02] MEDS: LEVOTHYROXINE SODIUM 88 MCG TAB PO SCH (09:49)
[2018-05-02] MEDS: SODIUM CITR/CITRIC ACID ORAL SOLN 30 ML PO SCH ×3 (09:49→18:02)
[2018-05-02] MEDS: PANTOPRAZOLE 40 MG TAB PO SCH (09:49)
[2018-05-02 17:04] VITALS: BP 111/67
[2018-05-02 20:00] VITALS: BP 109/66
[2018-05-02 22:01] VITALS: BP 109/66
[2018-05-03 01:37] VITALS: BP 109/66
[2018-05-03] MEDS: DOBUTamine 1000MCG/ML 250 ML IV SCH ×4 (02:03→21:03)
[2018-05-03 05:02] VITALS: BP 105/64
[2018-05-03] MEDS: FUROSEMIDE 40 MG/4 ML VIAL IV SCH ×2 (05:46→17:46)
[2018-05-03] MEDS: IPRATROPIUM BROM 0.5 MG/2.5ML INH SOL NEB SCH ×3 (06:14→22:23)
[2018-05-03 08:00] VITALS: BP 113/60
[2018-05-03] MEDS: CHOLECALCIFEROL (VITD3) 1,000 UNIT TAB PO SCH (10:08)
[2018-05-03] MEDS: TAMSULOSIN HYDROCHLORIDE 0.4 MG CAP PO SCH (10:08)
[2018-05-03] MEDS: PANTOPRAZOLE 40 MG TAB PO SCH (10:08)
[2018-05-03] MEDS: LEVOTHYROXINE SODIUM 88 MCG TAB PO SCH (10:08)
[2018-05-03] MEDS: B-COMPLEX W/ C & FOLIC ACID(NEPHROVITE TAB) PO SCH (10:08)
[2018-05-03] MEDS: amLODIPine BESYLATE 5 MG TAB PO SCH (10:09)
[2018-05-03] MEDS: AMIODARONE HCL 200 MG TAB PO SCH (10:10)
[2018-05-03] MEDS: POTASSIUM CHL 10% (20 MEQ/15ML) 15ml ORAL SOLN PO SCH ×2 (10:11→21:04)
[2018-05-03] MEDS: SODIUM CITR/CITRIC ACID ORAL SOLN 30 ML PO SCH ×3 (10:11→19:41)
[2018-05-03 12:00] VITALS: BP 105/44
[2018-05-03 16:00] VITALS: BP 110/57
[2018-05-03 22:02] VITALS: BP 107/57
[2018-05-04 05:08] VITALS: BP 113/62
[2018-05-04] MEDS: FUROSEMIDE 40 MG/4 ML VIAL IV SCH ×2 (05:29→17:46)
[2018-05-04 06:19] LABS: Basophils # (auto) 0 uL; Basophils % (auto) 0.5 % (0.0-2.0); Eosinophils # (auto) 0.2 uL; Eosinophils % (auto) 2.3 % (0.0-7.0); Hematocrit 33.6 % (41.0-53.0); Hemoglobin 11.3 g/dL (13.5-17.5); Lymphocytes % (auto) 13.5 % (10.0-50.0); Mean Corpuscular Hemoglobin 33.2 pg (28.0-32.0); Mean Corpuscular Hgb Conc. 33.6 g/dL (32.0-36.0); Monocytes # (auto) 1.1 uL; Monocytes % (auto) 15.1 % (0.0-12.0); Neutrophils # (auto) 4.8 uL; Neutrophils % (auto) 68.6 % (37.0-80.0); Platelet Count (auto) 76 10^3/uL (140-450); Red Cell Distribution Width 14.5 % (11.8-14.3); White Blood Cell 7.1 10^3/uL (4.4-10.8)
[2018-05-04 06:35] LABS: Albumin 3.1 g/dL (3.4-5.0); BUN/Creatinine Ratio 14.7; Calcium 8.7 mg/dL (8.5-10.1); Potassium 4.2 mmol/L (3.5-5.1)
[2018-05-04 06:38] LABS: Bilirubin, Total 0.6 mg/dL (0.2-1.0); Total Protein 6.4 g/dL (6.4-8.2)
[2018-05-04] MEDS: IPRATROPIUM BROM 0.5 MG/2.5ML INH SOL NEB SCH ×3 (07:15→22:33)
[2018-05-04 08:20] VITALS: BP 112/58
[2018-05-04] MEDS: DOBUTamine 1000MCG/ML 250 ML IV SCH ×2 (08:53→19:48)
[2018-05-04] MEDS: SODIUM CITR/CITRIC ACID ORAL SOLN 30 ML PO SCH ×3 (08:59→17:45)
[2018-05-04] MEDS: TAMSULOSIN HYDROCHLORIDE 0.4 MG CAP PO SCH (09:32)
[2018-05-04] MEDS: POTASSIUM CHL 10% (20 MEQ/15ML) 15ml ORAL SOLN PO SCH ×2 (09:32→21:10)
[2018-05-04] MEDS: LEVOTHYROXINE SODIUM 88 MCG TAB PO SCH (09:32)
[2018-05-04] MEDS: B-COMPLEX W/ C & FOLIC ACID(NEPHROVITE TAB) PO SCH (09:33)
[2018-05-04] MEDS: CHOLECALCIFEROL (VITD3) 1,000 UNIT TAB PO SCH (09:33)
[2018-05-04] MEDS: AMIODARONE HCL 200 MG TAB PO SCH (09:33)
[2018-05-04] MEDS: PANTOPRAZOLE 40 MG TAB PO SCH (09:33)
[2018-05-04] MEDS: amLODIPine BESYLATE 5 MG TAB PO SCH (09:33)
[2018-05-04 12:22] VITALS: BP 103/69
[2018-05-04 16:49] VITALS: BP 103/58
[2018-05-04 22:00] VITALS: BP 106/58
[2018-05-05] VITALS (7 sets, daily range): BP systolic 103–133; BP diastolic 66–94
[2018-05-05] MEDS: DOBUTamine 1000MCG/ML 250 ML IV SCH ×2 (06:28→17:25)
[2018-05-05] MEDS: FUROSEMIDE 40 MG/4 ML VIAL IV SCH ×2 (06:28→17:44)
[2018-05-05] MEDS: IPRATROPIUM BROM 0.5 MG/2.5ML INH SOL NEB SCH ×3 (07:01→23:04)
[2018-05-05] MEDS: SODIUM CITR/CITRIC ACID ORAL SOLN 30 ML PO SCH ×3 (09:22→17:44)
[2018-05-05] MEDS: B-COMPLEX W/ C & FOLIC ACID(NEPHROVITE TAB) PO SCH (09:23)
[2018-05-05] MEDS: POTASSIUM CHL 10% (20 MEQ/15ML) 15ml ORAL SOLN PO SCH ×2 (09:23→21:57)
[2018-05-05] MEDS: LEVOTHYROXINE SODIUM 88 MCG TAB PO SCH (09:23)
[2018-05-05] MEDS: amLODIPine BESYLATE 5 MG TAB PO SCH (09:23)
[2018-05-05] MEDS: PANTOPRAZOLE 40 MG TAB PO SCH (09:24)
[2018-05-05] MEDS: CHOLECALCIFEROL (VITD3) 1,000 UNIT TAB PO SCH (09:24)
[2018-05-05] MEDS: TAMSULOSIN HYDROCHLORIDE 0.4 MG CAP PO SCH (09:24)
[2018-05-05] MEDS: AMIODARONE HCL 200 MG TAB PO SCH (09:24)
[2018-05-05 10:19] LABS: INR 1.02 (0.9-1.15); Partial Thromboplastin Time 29.2 sec (23.78-33.04); Prothrombin Time 10.9 sec (9.27-12.13)
[2018-05-06] VITALS (8 sets, daily range): BP systolic 100–126; BP diastolic 50–66
[2018-05-06] MEDS: DOBUTamine 1000MCG/ML 250 ML IV SCH (03:15)
[2018-05-06] MEDS: FUROSEMIDE 40 MG/4 ML VIAL IV SCH ×2 (06:05→18:11)
[2018-05-06] MEDS: IPRATROPIUM BROM 0.5 MG/2.5ML INH SOL NEB SCH ×3 (07:14→22:46)
[2018-05-06] MEDS: SODIUM CITR/CITRIC ACID ORAL SOLN 30 ML PO SCH ×3 (09:00→18:11)
[2018-05-06] MEDS ORDERED: LIDOCAINE 2% (LOCAL ANESTH.) PF 5ml SDV ONE (09:27)
[2018-05-06] MEDS ORDERED: MIDAZOLAM HCL 1MG/1ML-2 ML VIAL ONE (09:53)
[2018-05-06] MEDS ORDERED: fentaNYL CITRATE 100 MCG/2 ML VL ONE (09:53)
[2018-05-06] MEDS ORDERED: VANCOMYCIN HCL 1000 MG VL ONE (09:53)
[2018-05-06] MEDS ORDERED: VANCOMYCIN 1GM/250ML 250 ML IV ONE (09:54)
[2018-05-06] MEDS ORDERED: ceFAZolin 1GM/50ML 50 ML IV ONE (09:54)
[2018-05-06] MEDS: amLODIPine BESYLATE 5 MG TAB PO SCH (10:00)
[2018-05-06] MEDS ORDERED: LIDOCAINE 2%HCL (LOCAL ANESTH.) INJ 20ML MDV ONE (10:15)
[2018-05-06] MEDS: PANTOPRAZOLE 40 MG TAB PO SCH (12:32)
[2018-05-06] MEDS: AMIODARONE HCL 200 MG TAB PO SCH (12:32)
[2018-05-06] MEDS: TAMSULOSIN HYDROCHLORIDE 0.4 MG CAP PO SCH (12:32)
[2018-05-06] MEDS: CHOLECALCIFEROL (VITD3) 1,000 UNIT TAB PO SCH (12:32)
[2018-05-06] MEDS: B-COMPLEX W/ C & FOLIC ACID(NEPHROVITE TAB) PO SCH (12:32)
[2018-05-06] MEDS: LEVOTHYROXINE SODIUM 88 MCG TAB PO SCH (12:32)
[2018-05-06] MEDS: POTASSIUM CHL 10% (20 MEQ/15ML) 15ml ORAL SOLN PO SCH ×2 (12:33→22:29)
[2018-05-06] MEDS: ceFAZolin 1GM 2 GM in D5W 5% 100 ML IV SCH (18:11)
[2018-05-07] MEDS: ceFAZolin 1GM 2 GM in D5W 5% 100 ML IV SCH ×2 (02:25→09:57)
[2018-05-07 05:14] VITALS: BP 100/62
[2018-05-07] MEDS: FUROSEMIDE 40 MG/4 ML VIAL IV SCH (06:52)
[2018-05-07] MEDS: IPRATROPIUM BROM 0.5 MG/2.5ML INH SOL NEB SCH ×2 (07:15→14:43)
[2018-05-07 07:52] VITALS: BP 99/64
[2018-05-07] MEDS: SODIUM CITR/CITRIC ACID ORAL SOLN 30 ML PO SCH ×2 (09:39→12:47)
[2018-05-07] MEDS: B-COMPLEX W/ C & FOLIC ACID(NEPHROVITE TAB) PO SCH (09:41)
[2018-05-07] MEDS: LEVOTHYROXINE SODIUM 88 MCG TAB PO SCH (09:41)
[2018-05-07] MEDS: TAMSULOSIN HYDROCHLORIDE 0.4 MG CAP PO SCH (09:41)
[2018-05-07] MEDS: CHOLECALCIFEROL (VITD3) 1,000 UNIT TAB PO SCH (09:41)
[2018-05-07] MEDS: PANTOPRAZOLE 40 MG TAB PO SCH (09:41)
[2018-05-07] MEDS: AMIODARONE HCL 200 MG TAB PO SCH (09:42)
[2018-05-07] MEDS: amLODIPine BESYLATE 5 MG TAB PO SCH (09:43)
[2018-05-07] MEDS: POTASSIUM CHL 10% (20 MEQ/15ML) 15ml ORAL SOLN PO SCH (09:43)
[2018-05-07 12:18] VITALS: BP 100/59
[2018-05-07 15:29] VITALS: BP 99/62
[2018-05-07 16:45] VITALS: BP 107/60
== END 2018-05-07 17:25 | disposition home or self-care (01) | DRG 265 ==
LOC: ER 13:53 → TELE 13:54 → TELE-EAST 23:03
PROVIDERS: ADMIT Internal Medicine; ATTEND Internal Medicine Cardiovascular Disease
PROC: 02PA3MZ Removal of Cardiac Lead from Heart, Percutaneous Approach (ICD-10-PCS; principal; 2018-05-06)
PROC: 02HK3KZ Insertion of Defibrillator Lead into Right Ventricle, Percutaneous Approach (ICD-10-PCS; 2018-05-06)
PROC: B2141ZZ Fluoroscopy of Right Heart using Low Osmolar Contrast (ICD-10-PCS; 2018-05-06)
DX: T82.110A Breakdown (mechanical) of cardiac electrode, initial encounter (principal); I50.23 Acute on chronic systolic (congestive) heart failure; N17.9 Acute kidney failure, unspecified; N18.5 Chronic kidney disease, stage 5; I13.2 Hypertensive heart and chronic kidney disease with heart failure and with stage 5 chronic kidney disease, or end stage renal disease; E87.2 Acidosis; I42.0 Dilated cardiomyopathy; T82.120A Displacement of cardiac electrode, initial encounter; Y71.2 Prosthetic and other implants, materials and accessory cardiovascular devices associated with adverse incidents; D64.9 Anemia, unspecified; D69.6 Thrombocytopenia, unspecified; I25.10 Atherosclerotic heart disease of native coronary artery without angina pectoris; Y83.8 Other surgical procedures as the cause of abnormal reaction of the patient, or of later complication, without mention of misadventure at the time of the procedure; I49.3 Ventricular premature depolarization; J44.9 Chronic obstructive pulmonary disease, unspecified; Z88.2 Allergy status to sulfonamides; Z88.8 Allergy status to other drugs, medicaments and biological substances; Z82.49 Family history of ischemic heart disease and other diseases of the circulatory system; Z87.440 Personal history of urinary (tract) infections; Z79.899 Other long term (current) drug therapy; Y92.89 Other specified places as the place of occurrence of the external cause
CPT/HCPCS: 33216; 33244; 36415; 71045; 71046; 80053; 83880; 84484; 85025; 85610; 85730; 87081; 93005; 94640; 99152; J0690; J2250; J7060

== ENCOUNTER → 2018-05-14 | Outpatient (CLI) | payer MEDICARE, MEDICAID | END | disposition home or self-care (01) | LOC: Rad HDHVI 10:42 | PROVIDERS: ATTEND Internal Medicine Cardiovascular Disease | DX: I08.1 Rheumatic disorders of both mitral and tricuspid valves (principal); I42.0 Dilated cardiomyopathy; I13.0 Hypertensive heart and chronic kidney disease with heart failure and stage 1 through stage 4 chronic kidney disease, or unspecified chronic kidney disease; E11.22 Type 2 diabetes mellitus with diabetic chronic kidney disease; I50.23 Acute on chronic systolic (congestive) heart failure; N18.3 Chronic kidney disease, stage 3 (moderate); I25.10 Atherosclerotic heart disease of native coronary artery without angina pectoris; I95.9 Hypotension, unspecified; E78.5 Hyperlipidemia, unspecified; E03.9 Hypothyroidism, unspecified; Z79.899 Other long term (current) drug therapy | CPT/HCPCS: 93306 ==

== ENCOUNTER → 2018-07-27 | Outpatient (CLI) | payer MEDICARE, MEDICAID ==
[~2018-07-27] MED LIST changes: -BENA10TA53 PO; +BENA10TA84 PO
== END | disposition home or self-care (01) ==
LOC: Rad HDHVI 13:49
PROVIDERS: ATTEND Internal Medicine Cardiovascular Disease
DX: I25.5 Ischemic cardiomyopathy (principal); I11.0 Hypertensive heart disease with heart failure; I50.43 Acute on chronic combined systolic (congestive) and diastolic (congestive) heart failure; I25.10 Atherosclerotic heart disease of native coronary artery without angina pectoris; R41.9 Unspecified symptoms and signs involving cognitive functions and awareness; I08.3 Combined rheumatic disorders of mitral, aortic and tricuspid valves; F41.9 Anxiety disorder, unspecified; J44.9 Chronic obstructive pulmonary disease, unspecified; I27.20 Pulmonary hypertension, unspecified; Z88.2 Allergy status to sulfonamides; Z88.1 Allergy status to other antibiotic agents; Z87.891 Personal history of nicotine dependence
CPT/HCPCS: 93306

== ENCOUNTER → 2018-12-06 | Outpatient (CLI) | payer MEDICARE, MEDICAID ==
[2018-12-06 16:09] LABS: BUN/Creatinine Ratio 16.1; Calcium 8.4 mg/dL (8.5-10.1); Uric Acid 8.8 mg/dL (3.5-7.2)
[2018-12-06 16:38] LABS: Potassium 5.6 mmol/L (3.5-5.1)
--- NOTE | 2018-12-06 17:15 | NUR ---
LABS: ABNORMAL LAB RESULTS FROM THIS AM REPORTED TO DR. VILLAFANA, WITH NEW ORDERS RECEIVED FOR MEDS; NEPHROVITE 1 TAB PO Q DAY, AND NAHCO3 650MG PO BID. LAB RESULTS CALLED TO PT. AND SPOUSE AND NEW RX X2 CALLED TO [facility] PER MD ORDER. PT. TO MAINTENANCE CONSTRUCTION HELPER IN AM. NOTE: PT. HAS APPT. WITH DR. VILLAFANA IN 2 DAYS.
== END | disposition home or self-care (01) ==
LOC: LAB 11:27
PROVIDERS: ATTEND Internal Medicine Cardiovascular Disease
DX: I11.0 Hypertensive heart disease with heart failure (principal); I50.9 Heart failure, unspecified; M10.9 Gout, unspecified
CPT/HCPCS: 36415; 80048; 84550

== ENCOUNTER → 2018-12-28 | Outpatient (CLI) | payer MEDICARE, MEDICAID ==
[2018-12-28 12:10] LABS: BUN/Creatinine Ratio 14.5; Calcium 8.3 mg/dL (8.5-10.1); Potassium 4.4 mmol/L (3.5-5.1)
== END | disposition home or self-care (01) ==
LOC: LAB 09:26
PROVIDERS: ATTEND Internal Medicine Cardiovascular Disease
DX: I10 Essential (primary) hypertension (principal)
CPT/HCPCS: 36415; 80048

== ENCOUNTER 2018-12-30 01:29 | Inpatient (IN) | payer MEDICARE, MEDICAID | END 2019-01-01 15:47 | disposition home or self-care (01) | LOC: ER 01:29 → TELE 07:01 → TELE-WESTW 09:09 | DX: I21.4 Non-ST elevation (NSTEMI) myocardial infarction (principal); N17.0 Acute kidney failure with tubular necrosis; I50.21 Acute systolic (congestive) heart failure; I13.0 Hypertensive heart and chronic kidney disease with heart failure and stage 1 through stage 4 chronic kidney disease, or unspecified chronic kidney disease; N18.4 Chronic kidney disease, stage 4 (severe); J44.9 Chronic obstructive pulmonary disease, unspecified; I50.82 Biventricular heart failure; D64.9 Anemia, unspecified; I73.9 Peripheral vascular disease, unspecified ==

== ENCOUNTER 2019-01-07 10:20 | Inpatient (IN) | payer MEDICARE, MEDICAID ==
[~2019-01-07] VITALS: Ht 177.8 cm; Wt 82.1 kg
[2019-01-07 11:40] LABS: Basophils % (auto) 0.6 % (0.0-2.0); Eosinophils # (auto) 0.1 uL; Lymphocytes # (auto) 0.4 uL; Monocytes # (auto) 1.1 uL; Neutrophils # (auto) 7.1 uL
[2019-01-07 11:41] LABS: Basophils # (auto) 0 uL; Hematocrit 35.5 % (41.0-53.0); Hemoglobin 11.8 g/dL (13.5-17.5); Mean Corpuscular Hemoglobin 34.7 pg (28.0-32.0); Mean Corpuscular Hgb Conc. 33.1 g/dL (32.0-36.0); Mean Corpuscular Volume 104.8 fL (80.0-100.0); Monocytes % (auto) 12.5 % (0.0-12.0); Neutrophils % (auto) 80.9 % (37.0-80.0); Platelet Count (auto) 149 10^3/uL (140-450); Red Blood Cells 3.39 10^6/uL (4.5-5.90); Red Cell Distribution Width 16.4 % (11.8-14.3); White Blood Cell 8.8 10^3/uL (4.4-10.8)
[2019-01-07 11:59] LABS: Albumin 3.3 g/dL (3.4-5.0); BUN/Creatinine Ratio 16.5; Magnesium 3.5 mg/dL (1.6-2.6); Potassium 4.6 mmol/L (3.5-5.1)
[2019-01-07] MEDS ORDERED: cefTRIAXone 1GM/50ML D5W 50 ML IV ONE (12:00)
[2019-01-07] MEDS ORDERED: AZITHROMYCIN 500MG/ 250ML 250 ML IV ONE (12:00)
[2019-01-07 12:01] LABS: INR 1.5 (0.9-1.15); Partial Thromboplastin Time 35.5 sec (23.78-33.04); Prothrombin Time 15.7 sec (9.27-12.13)
[2019-01-07 12:04] LABS: Bilirubin, Total 0.5 mg/dL (0.2-1.0); Total Protein 6.5 g/dL (6.4-8.2)
[2019-01-07] MEDS ORDERED: SODIUM CHLORIDE 0.9% 1,000 ML IV ONE (12:11)
[2019-01-07] MEDS ORDERED: ENOXAPARIN SOD 80 MG/0.8ML SYRINGE SC ONE (14:00)
[2019-01-07] MEDS ORDERED: FUROSEMIDE 40 MG/4 ML VIAL IV ONE (14:00)
[2019-01-07 15:23] LABS: Urine Bacteria NONE SEEN /hpf (None Seen); Urine Blood Negative /uL (Negative); Urine Specific Gravity 1.017 (1.001-1.035); Urine WBC 3 /hpf (0 - 3)
--- NOTE | 2019-01-07 21:14 | NUR ---
Family notified Cele notified of code blue and updated on patient status post code. Addendum: 01/08/19 at 0031 by JANETTE JAIN OCA, RN Wrong time.
[2019-01-07 21:20] VITALS: BP 109/59
--- NOTE | 2019-01-07 21:20 | NUR ---
Telemetry admit from ER SOFÍA BAIRES admitted to Telemetry unit. Patient oriented to JANETTE JAIN OCA, primary RN, unit, room, bed, and unit policies regarding patient care and visiting hours. Patient now on continuous telemetry monitoring, tele box #47 and telemetry reading on arrival to unit is SR 77. Patient placed on bedside oxygen, weighed by bedscale and encouraged to call if they need something. All questions and concerns addressed, patient verbalized understanding.
[2019-01-07 21:35] VITALS: BP 109/59
--- NOTE | 2019-01-07 22:40 | NUR ---
Rounds Patient verbalized needing to have a bowel movement. Instructed patient that I could get him a bedside commode or a bedpan. Patient then stated "No, I want to use the toilet." Instructed patient that I would get him a walker to see if he had a steady gait. Patient agreed. Patient had a steady gait with the walker, assisted patient to restroom and instructed patient that once he was done using the restroom to pull the call light to get help getting back to bed. Patient verbalized understanding.
--- NOTE | 2019-01-07 22:51 | NUR ---
Rounds While going back to see if patient was still doing okay in the restroom, noticed the bathroom door was already open. Proceeded to walk into the patient's room and found patient on the floor with his body faced down and his face facing the wall to the right. Blood was noticed around his head. Patient was unresponsive when tried to awaken.
--- NOTE | 2019-01-07 22:52 | NUR ---
Code Blue called. Please see CODE sheets and Provider/MD notes regarding patient code.
--- NOTE | 2019-01-07 22:54 | NUR ---
PT INTUBATED BY RT NILSA WITH AN 8.0 ETT SECURED BY LELE AT 24 UPPER LIP. JANAY WOO AT BEDSIDE.
--- NOTE | 2019-01-07 23:14 | NUR ---
Family notified Cele notified of code blue and updated on patient's status post code.
[2019-01-07] MEDS: NOREPINEPHRINE 8 MG/250ML KIT 250 ML IV SCH (23:15)
[2019-01-07] MEDS: MIDAZOLAM DRIP 50 mg/50mL 50 ML IV SCH (23:15)
--- NOTE | 2019-01-07 23:21 | NUR ---
Contacted Dr. Marin Message left with Dr. Marin's answering service to update on patient's status.
--- NOTE | 2019-01-07 23:26 | NUR ---
Report given to Germain DARNELL.
[2019-01-07 23:51] VITALS: BP 109/59
[2019-01-07 23:57] VITALS: BP 109/59
[2019-01-08] VITALS (105 sets, daily range): BP systolic 80–123; BP diastolic 44–58
[2019-01-08 02:19] LABS: Basophils # (auto) 0 uL; Eosinophils # (auto) 0 uL; Hemoglobin 10.1 g/dL (13.5-17.5); Monocytes # (auto) 1.5 uL
[2019-01-08 02:21] LABS: Basophils % (auto) 0.1 % (0.0-2.0); Eosinophils % (auto) 0.3 % (0.0-7.0); Hematocrit 30.7 % (41.0-53.0); Lymphocytes # (auto) 0.4 uL; Lymphocytes % (auto) 2.7 % (10.0-50.0); Mean Corpuscular Hemoglobin 34.5 pg (28.0-32.0); Mean Corpuscular Hgb Conc. 32.9 g/dL (32.0-36.0); Mean Corpuscular Volume 104.7 fL (80.0-100.0); Monocytes % (auto) 10.3 % (0.0-12.0); Neutrophils # (auto) 12.3 uL; Neutrophils % (auto) 86.6 % (37.0-80.0); Platelet Count (auto) 126 10^3/uL (140-450); Red Blood Cells 2.93 10^6/uL (4.5-5.90); Red Cell Distribution Width 15.7 % (11.8-14.3); White Blood Cell 14.2 10^3/uL (4.4-10.8)
[2019-01-08 02:37] LABS: Albumin 2.7 g/dL (3.4-5.0); BUN/Creatinine Ratio 16.1; Calcium 8.5 mg/dL (8.5-10.1); Potassium 4.8 mmol/L (3.5-5.1)
[2019-01-08 02:41] LABS: Bilirubin, Total 0.6 mg/dL (0.2-1.0); Total Protein 5.6 g/dL (6.4-8.2)
[2019-01-08] MEDS: DOBUTamine 1000MCG/ML 250 ML IV SCH ×2 (03:45→23:15)
[2019-01-08] MEDS ORDERED: DEXTROSE (50%) 50ML SYRG IV PRN (03:45)
[2019-01-08] MEDS ORDERED: LEVOFLOXACIN 500MG 100 ML IV ONE (04:30)
[2019-01-08] MEDS: InsuLIN REG 1unit/0.01ml Soln (100units/ml) SC SCH ×3 (06:00→18:00)
[2019-01-08] MEDS: ACCU-CHEK COMFORT CURVE STRIP VI SCH ×3 (06:00→18:00)
[2019-01-08] MEDS: LEVOTHYROXINE SODIUM 88 MCG TAB PO SCH (06:49)
[2019-01-08] MEDS: NOREPINEPHRINE 8 MG/250ML KIT 250 ML IV SCH (09:58)
[2019-01-08] MEDS ORDERED: LEVOFLOXACIN 500MG 100 ML IV SCH (10:00)
[2019-01-08] MEDS ORDERED: FUROSEMIDE 40 MG/4 ML VIAL IV ONE (11:15)
[2019-01-08] MEDS: ALBUMIN 25% 100 ML IV SCH ×2 (12:50→19:45)
[2019-01-08] MEDS: SODIUM CHLORIDE 0.9% 1,000 ML IV SCH ×2 (12:50→21:45)
--- NOTE | 2019-01-08 13:00 | NUR ---
WOUND CARE NOTE: IN TO SEE PATIENT AT THIS TIME PER WOUND CARE CONSULT REQUEST. PATIENT WAS RENDERED WITH TWO OPEN ABRASIONS AFTER FALL. PATIENT WAS CODE BLUE AT THAT TIME. CURRENTLY PATIENT IS INTUBATED, SEDATED IN ICU BED 8A. PAITIENT HAS OPEN PARTIAL THICKNESS ABRASIONS TO ANTERIOR FOREHEAD AND NOSE. THERE IS SCANT SANGUINOUS DRAINAGE NOTED TO BOTH WOUNDS. CLERANSED WITH NS, PATTED DRY WITH STERILE GAUZE. APPLIED THERAHONEY. APPLIED OPTIFOAM GENTLE DRESSING TO FOREHEAD, BANDAID TO NOSE ABRASION. PATIENT WOULD BENEFIT FROM FREQUENT TURN SCHEDULE, Q 2 HOURS, PRN CONDITION PERMITS, WITH PRESSURE REDISTRIBUTION USING PILLOWS/WEDGES, BID/PRN APPLICATION WITH MOISTURE BARRIER CREAM, BID/PRN APPLICATION WITH MOISTURE BARRIER CREAM, COVERING UPPER MEDIAL SACRUM WITH OPTIFOAM GENTLE SACRAL DRESSING, DIETARY CONSULT FOR LOW ABEL SCORE, WOUNDS ON FACE, Q 3 DAY, PRN DRESSING CHANGES TO FOREHEAD AND NOSE WOUNDS, SKIN/WOUND CARE PLAN, CONTINUED MONITORING BY WOUND CARE TEAM. Addendum: 01/08/19 at 1518 by Lisandra Rand RN Amended: Links added.
[2019-01-08] MEDS: MIDAZOLAM DRIP 50 mg/50mL 50 ML IV SCH (13:44)
[2019-01-08] MEDS ORDERED: EPINEPHrine HCL 1 MG/10 ML SYRG IV ONE (13:53)
[2019-01-08] MEDS ORDERED: CALCIUM CHLOR(10%) 100MG/ML 10ML SYRINGE IV ONE (13:53)
--- NOTE | 2019-01-08 15:47 | NUR ---
Resumed care of patient at 0700. Orders reviewed and ongoing assessments being done. S/P Cardiac Arrest, remains intubated and sedated with Versed and tolerating ventilator. Does not open eyes but does withdraw to tactile stimulation. 0820 initiated Levophed for BP stability, MAP <65, infusing via RIJ TLC. Dr. Marin rounded at 1115, discussed patient's condition and reviewed medications. Will continue with Dobutamine at 2.5 mcg/kg/min. IVF's at 100ml/hour due to increase in BUN. Patient's Cele and son came at 0800 to visit. Patient's son Luciano Rascon was at bedside when Dr. Marin was in the unit and was able to speak with him. Wound care nurse Johanny consulted and saw the patient at 1300, refer to notes.
--- NOTE | 2019-01-08 18:37 | NUR ---
Dr. Ruano, horse rancher rounded on the patient 1625 for ARF, patient examine and chart reviewed, discussed plan of care. Agreed with current plan and will monitor the patient daily.
[2019-01-08 19:28] LABS: BUN/Creatinine Ratio 15.8; Calcium 8.1 mg/dL (8.5-10.1); Potassium 5.3 mmol/L (3.5-5.1)
[2019-01-09] VITALS (101 sets, daily range): BP systolic 84–116; BP diastolic 40–64
[2019-01-09] MEDS: ACCU-CHEK COMFORT CURVE STRIP VI SCH ×4 (00:15→18:21)
[2019-01-09] MEDS: ALBUMIN 25% 100 ML IV SCH (03:45)
[2019-01-09] MEDS: InsuLIN REG 1unit/0.01ml Soln (100units/ml) SC SCH ×4 (06:00→18:00)
[2019-01-09 06:21] LABS: BUN/Creatinine Ratio 15.6; Calcium 8.1 mg/dL (8.5-10.1); Phosphorus 7.6 mg/dL (2.5-4.90)
--- NOTE | 2019-01-09 09:00 | NUR ---
DR ARAIZA AT BEDSIDE, EXAMINED PATIENT, SPOKE WITH FAMILY REGARDING POSSIBLE DIALYSIS. FAMILY VERBALIZED UNDERSTANDING AND ALL QUESTIONS/CONCERNS ADDRESSED.
[2019-01-09 09:55] LABS: Basophils # (auto) 0 uL; Eosinophils # (auto) 0 uL; Hemoglobin 10.2 g/dL (13.5-17.5)
[2019-01-09 09:56] LABS: Basophils % (auto) 0.1 % (0.0-2.0); Eosinophils % (auto) 0.3 % (0.0-7.0); Hematocrit 31.4 % (41.0-53.0); Lymphocytes # (auto) 0.5 uL; Lymphocytes % (auto) 4.2 % (10.0-50.0); Mean Corpuscular Hgb Conc. 32.4 g/dL (32.0-36.0); Mean Corpuscular Volume 104.9 fL (80.0-100.0); Monocytes # (auto) 1.7 uL; Monocytes % (auto) 14.2 % (0.0-12.0); Neutrophils % (auto) 81.2 % (37.0-80.0); Platelet Count (auto) 99 10^3/uL (140-450); Red Blood Cells 2.99 10^6/uL (4.5-5.90); Red Cell Distribution Width 16.5 % (11.8-14.3); White Blood Cell 12.3 10^3/uL (4.4-10.8)
[2019-01-09] MEDS ORDERED: ENOXAPARIN SOD 30 MG/0.3 ML SYRINGE SC SCH (10:00)
[2019-01-09] MEDS: LEVOTHYROXINE SODIUM 88 MCG TAB PO SCH (10:01)
[2019-01-09] MEDS: CLOPIDOGREL BISULFATE 75 MG TAB PO SCH (10:01)
--- NOTE | 2019-01-09 10:37 | NUR ---
SPOKE WITH DR BRODERICK DR AWARE OF LABS, CURRENT ORDERED INFUSING IV MEDICATIONS AND VS. DR GAVE ORDER TO OBTAIN CONSENT FOR HEMODIALYSIS CATHETER INSERTION AND TO START DIALYSIS PER DR ARAIZA ORDER. DR ARAIZA PAGED.
--- NOTE | 2019-01-09 10:48 | NUR ---
SPOKE WITH , CORTES BAIRES AND CONSENT OBTAINED VIA TELEPHONE FOR DIALYSIS/DIALYSIS CATHETER INSERTION. ALEXUS DARNELL SECOND NURSE TO VERIFY CONSENT.
--- NOTE | 2019-01-09 11:10 | NUR ---
SPOKE WITH DR ARAIZA, VERIFIED ORDER FOR HEMODIALYSIS CATHETER PLACEMENT BY RADIOLOGIST FOR TOMORROW AND ORDER FOR DIALYSIS TOMORROW.
[2019-01-09] MEDS ORDERED: HEPARIN 1,000 UNITS/ml 1ML VIAL ONE (13:18)
--- NOTE | 2019-01-09 13:30 | NUR ---
DR JORGE TO PLACE HEMODIALYSIS CATHETER PER DR ARAIZA
--- NOTE | 2019-01-09 15:00 | NUR ---
DR JORGE AT BEDSIDE PLACED HEMODIALYSIS CATHETER TO RIGHT FEMORAL. ATTEMPTED TO PLACE LEFT IJ DIALYSIS CATHETER WITH ULTRASOUND AND ONLY EXTERNAL VEINS VISUAL. PATIENT TOLERATED WELL.
[2019-01-09 18:28] LABS: BUN/Creatinine Ratio 14.7; Potassium 5.2 mmol/L (3.5-5.1)
--- NOTE | 2019-01-09 18:52 | NUR ---
PAGED DR ARAIZA REGARDING POTASSIUM LEVEL
--- NOTE | 2019-01-09 19:00 | NUR ---
OPENING NOTE ASSUMED CARE OF PT AT THIS TIME. REPORT RECEIVED FROM DAY SHIFT RN. POC REVIEWED, HEAD TO TOE ASSESSMENT COMPLETE, SEE INTERVENTION SPREADSHEET FOR COMPLETE DETAILS. RECEIVED PT INTUBATED AND SEDATED ON VERSED AT 7 MG. PT IS PERRLA +COUGH AND GAG. VSS. PT ON 8 MCG OF LEVO AND 2.5 OF DOBUTAMINE. F/C DRAINING TO GRAVITY. IV SITE BENIGN. BED LOCKED AND IN LOWEST POSITION, SAFETY PRECAUTIONS IN PLACE. BONY PROMINENCES OFFLOADED.PT S/P FALL, NO ACTIVE BLEEDING AT THIS TIME, SCABS NOTED ON FOREHEAD AND RIGHT EYE IS BRUISED. PT DOES NOT APPEAR TO BE IN DISTRESS. RT GROIN DIALYSIS CATHETER NEWLY INSERTED. DRESSING CDI. WILL MONITOR PT CAREFULLY.
[2019-01-09] MEDS ORDERED: LEVOFLOXACIN 250MG 50 ML IV SCH (21:00)
--- NOTE | 2019-01-09 21:20 | NUR ---
CALL PLACED TO DR VILLAFANA REGARDING DOBUTAMINE BEING GIVEN PER REPORT FOR RENAL DOSE, CLARIFICATION NEEDED FOR CORRECT MEDICATION. SPOKE WITH DIANNA AT THE EXCHANGE. MESSAGE LEFT. AWAITING RESPONSE FROM DR VILLAFANA.
[2019-01-09] MEDS: DOBUTamine 1000MCG/ML 250 ML IV SCH (21:31)
--- NOTE | 2019-01-09 22:16 | NUR ---
MESSAGE LEFT WITH BRIANA AT DR VILLAFANA'S EXCHANGE REGARDING MEDICATION VERIFICATION AT THIS TIME.
[2019-01-09] MEDS: MIDAZOLAM DRIP 50 mg/50mL 50 ML IV SCH (23:23)
[2019-01-10] VITALS (104 sets, daily range): BP systolic 87–123; BP diastolic 44–71
[2019-01-10] MEDS: ACCU-CHEK COMFORT CURVE STRIP VI SCH ×4 (00:03→18:00)
--- NOTE | 2019-01-10 03:45 | NUR ---
SEDATION TURNED OFF AT THIS TIME TO ASSESS NEURO STATUS.
--- NOTE | 2019-01-10 03:52 | NUR ---
BATHING/LINEN CHANGE PT GIVEN FULL BATH WITH CHG WIPES AND WASH CLOTHES. FULL LINEN CHANGE AT THIS TIME. PT TOLERATED WELL. SUCTION TUBING AND CANISTER CHANGED AT THIS TIME. SKIN ASSESSED FOR INTEGRITY CHANGES, NONE NOTED. PT HAD SMALL FORMED BM A THIS TIME. PT REPOSITIONED FOR SAFETY AND COMFORT. WILL CONTINUE WITH CARE.
[2019-01-10] MEDS: NOREPINEPHRINE 8 MG/250ML KIT 250 ML IV SCH ×2 (04:11→18:09)
[2019-01-10 04:29] LABS: Basophils # (auto) 0 uL; Basophils % (auto) 0.3 % (0.0-2.0); Eosinophils # (auto) 0.1 uL; Eosinophils % (auto) 0.4 % (0.0-7.0); Hematocrit 32.5 % (41.0-53.0); Lymphocytes # (auto) 0.7 uL; Mean Corpuscular Hgb Conc. 33.1 g/dL (32.0-36.0); Neutrophils # (auto) 12.5 uL
[2019-01-10 04:32] LABS: Potassium 5.1 mmol/L (3.5-5.1)
[2019-01-10 04:33] LABS: BUN/Creatinine Ratio 15.5
[2019-01-10 04:36] LABS: Hemoglobin 10.7 g/dL (13.5-17.5); Lymphocytes % (auto) 4.6 % (10.0-50.0); Mean Corpuscular Hemoglobin 34.3 pg (28.0-32.0); Mean Corpuscular Volume 103.5 fL (80.0-100.0); Monocytes # (auto) 2.2 uL; Monocytes % (auto) 14.1 % (0.0-12.0); Neutrophils % (auto) 80.6 % (37.0-80.0); Platelet Count (auto) 100 10^3/uL (140-450); Red Blood Cells 3.14 10^6/uL (4.5-5.90); Red Cell Distribution Width 16.2 % (11.8-14.3); White Blood Cell 15.5 10^3/uL (4.4-10.8)
[2019-01-10] MEDS: InsuLIN REG 1unit/0.01ml Soln (100units/ml) SC SCH ×4 (06:00→18:00)
[2019-01-10] MEDS: LEVOTHYROXINE SODIUM 88 MCG TAB PO SCH (06:31)
--- NOTE | 2019-01-10 06:37 | NUR ---
PT GRIMACES, WITH DRAWS FROM STIMULATION BUT DOES NOT OPEN EYES AT THIS TIME.
--- NOTE | 2019-01-10 09:03 | NUR ---
Resumed care of patient at 0700. Orders reviewed and ongoing assessments being done. S/P Code on 01-07-19 and remains intubated. Sedation off since 344 this am. Not opening eyes but does withdraw to tactile stimulation and moves all extremities. Positive gag and facial grimacing during suctioning. Diagnosed with ARF and a hemodialysis catheter was placed, right femoral vein. Dialysis nurse at bedside setting up the dialysis machine for first session. Remains on Levophed gtt for BP support, infusing via right IJ TLC.
--- NOTE | 2019-01-10 12:27 | NUR ---
Hemodialysis ongoing, nurse at bedside. Tolerating treatment. Patient's Cele and son and daughter have been in to visit.
[2019-01-10] MEDS: DOBUTamine 1000MCG/ML 250 ML IV SCH ×2 (12:51→15:58)
[2019-01-10] MEDS: CLOPIDOGREL BISULFATE 75 MG TAB PO SCH (13:23)
[2019-01-10] MEDS: HEPARIN SODIUM (PORCINE) 5000 UNITS/ML 1ML VIAL SC SCH (13:24)
[2019-01-10] MEDS ORDERED: fentaNYL Drip 2500mCg/250mlNS 250 ML IV SCH (13:27)
--- NOTE | 2019-01-10 15:19 | NUR ---
Dr. Marin rounded at 1330, discussed patient's condition and plan of care. Will maintain ofsedation and initiated FentaNLY gtt for comfort. Not opening eyes spontaneously but appears he tries to open them when speaking to him. Dr. Ruano, electric blasting cap assembler also rounded at 1500. No fluid removal this session, will monitor daily. Patient's son Luciano Rascon at bedside when Dr. Ruano rounded and was able to speak with him, all questions answered.
--- NOTE | 2019-01-10 18:35 | NUR ---
No remarkable changes, remains intubated and calm, tolerating ventilator. Levophed gtt continues to infuse for BP support.
--- NOTE | 2019-01-10 18:48 | NUR ---
Respiratory note: RECEIVED PT ON VENT V9, PT IS ETT TO VENT. VENT CONNECTED TO RED OUTLET AND O2 SOURCE. ALARMS ARE SET AND AUDIBLE AMBU BAG AND MASK AT BEDSIDE. BS ARE FINE COURSE. SXD SMALL THIN CLEAR WHITE. RT NAME AND PAGER ASSIGNMENT WRITTEN ON PTS ROOM BOARD.
--- NOTE | 2019-01-10 20:12 | NUR ---
Respiratory note: AT BEDSIDE FOR ROUTINE VENT CHECK NO CHANGES MADE AT THIS TIME.
--- NOTE | 2019-01-10 22:21 | NUR ---
Respiratory note: AT BEDSIDE FOR ROUTINE VENT CHECK SXD SMALL THIN CREAMY GONSALES/YELLOW. NO VENT CHANGES MADE AT THIS TIME.
[2019-01-10] MEDS: MIDAZOLAM DRIP 50 mg/50mL 50 ML IV SCH (23:15)
[2019-01-11] VITALS (76 sets, daily range): BP systolic 63–119; BP diastolic 27–65
--- NOTE | 2019-01-11 00:31 | NUR ---
Respiratory note: AT BEDSIDE FOR ROUTINE VENT CHECK HME AND SX CATHETER CHANGED AT THIS TIME. WILL CONTINUE TO MONITOR.
--- NOTE | 2019-01-11 02:26 | NUR ---
Respiratory note: AT BEDSIDE FOR ROUTINE VENT CHECK. NO VENT CHANGES MADE AT THIS TIME.
[2019-01-11 04:07] LABS: Basophils # (auto) 0 uL; Basophils % (auto) 0.4 % (0.0-2.0); Eosinophils # (auto) 0.2 uL; Eosinophils % (auto) 1.5 % (0.0-7.0); Hematocrit 31.8 % (41.0-53.0); Hemoglobin 10.5 g/dL (13.5-17.5); Lymphocytes # (auto) 1.1 uL; Lymphocytes % (auto) 9.3 % (10.0-50.0); Mean Corpuscular Hemoglobin 34.6 pg (28.0-32.0); Mean Corpuscular Hgb Conc. 33.1 g/dL (32.0-36.0); Mean Corpuscular Volume 104.4 fL (80.0-100.0); Monocytes % (auto) 16.8 % (0.0-12.0); Neutrophils # (auto) 8.7 uL; Nucleated Red Blood Cells % 0.1 %; Platelet Count (auto) 92 10^3/uL (140-450); Red Blood Cells 3.04 10^6/uL (4.5-5.90); Red Cell Distribution Width 16.2 % (11.8-14.3)
--- NOTE | 2019-01-11 04:14 | NUR ---
Respiratory note: END OF SHIFT VENT CHECK NO CHANGES MADE. WILL HAVE DAY SHIFT CONTINUE PLAN OF CARE.
[2019-01-11 04:29] LABS: Albumin 2.8 g/dL (3.4-5.0); BUN/Creatinine Ratio 13.4; Bilirubin, Total 0.5 mg/dL (0.2-1.0); Calcium 7.8 mg/dL (8.5-10.1); Potassium 4.7 mmol/L (3.5-5.1); Total Protein 5.7 g/dL (6.4-8.2)
[2019-01-11] MEDS: ACCU-CHEK COMFORT CURVE STRIP VI SCH ×3 (06:00→11:21)
[2019-01-11] MEDS: InsuLIN REG 1unit/0.01ml Soln (100units/ml) SC SCH ×3 (06:00→11:20)
[2019-01-11] MEDS: LEVOTHYROXINE SODIUM 88 MCG TAB PO SCH (06:29)
[2019-01-11] MEDS: NOREPINEPHRINE 8 MG/250ML KIT 250 ML IV SCH ×3 (06:30→16:42)
--- NOTE | 2019-01-11 08:20 | NUR ---
Patient transported to CT accompanied by the radiology nurse Rosangela and RT. No distress noted at time of departure.
--- NOTE | 2019-01-11 08:30 | NUR ---
PT BACK FROM CT. PT WAS TRANSPORTED TO CT AND BACK TO ICU ON TRANSPORT VENTILATOR, WITHOUT INCIDENT. RN MILITARY MADHAV TYSON AND TRANSPORT TEAM AT BEDSIDE. CARDIAC AND BP MONITOR ON AND FUNCTIONAL. PT PLACED BACK ON VENTILATOR ON PREVIOUS VENT SETTINGS. ETT REMAINS TO SAME MARKING AND SETTINGS. BILATERAL BS TO AUSCULTATION. EQUAL CHEST EXCURSION IS PRESENT. NO ACUTE DISTRESS NOTICED.
--- NOTE | 2019-01-11 09:56 | NUR ---
BP 80/39, Levophed increased per protocol see flowsheet.
[2019-01-11] MEDS: HEPARIN SODIUM (PORCINE) 5000 UNITS/ML 1ML VIAL SC SCH ×2 (10:00→11:00)
--- NOTE | 2019-01-11 10:51 | NUR ---
Dr. Marin notified regarding patient's BP 81/44, orders received.
--- NOTE | 2019-01-11 10:57 | NUR ---
Family member at bedside.
[2019-01-11] MEDS: CLOPIDOGREL BISULFATE 75 MG TAB PO SCH (10:59)
[2019-01-11] MEDS ORDERED: ALBUMIN 25% 200 ML IV ONE (11:00)
[2019-01-11] MEDS ORDERED: Jevity 1.2 Cal/Fiber 1 Liter GT SCH (11:15)
[2019-01-11] MEDS: DOBUTamine 1000MCG/ML 250 ML IV SCH (11:42)
--- NOTE | 2019-01-11 14:02 | NUR ---
Jevity tube feeding initiated at 20ml/hr (goal is 65ml/hr).
--- NOTE | 2019-01-11 15:10 | NUR ---
Nutrition Assessment Notes Please se attached link for complete assessment Est. Needs BW [id number] kcal (23-25 kcal/kgBW), 82-90 gms pro (1.0-1.1 gms/kgBW). Will continue to monitor pertinent labs and reassess nutrient need prn Addendum: 01/11/19 at [address] Amended: Links added.
--- NOTE | 2019-01-11 16:32 | NUR ---
Dr. Ruano at bedside.
--- NOTE | 2019-01-11 17:00 | NUR ---
While turning and repositioning the patient, the patient's BP and HR declined. RN assessed the patient, and code blue was activated along with ACLS protocol, see CODE sheet.
--- NOTE | 2019-01-11 17:10 | NUR ---
Dr. Marin updated regarding patients change of status.
[2019-01-11] MEDS ORDERED: EPINEPHrine HCL 1 MG/10 ML SYRG ONE ×2 (17:22→17:23)
[2019-01-11] MEDS ORDERED: SODIUM BICARBONATE 8.4% INJ 50ML SYRINGE ONE (17:23)
--- NOTE | 2019-01-11 17:24 | NUR ---
Time of Pronounced by JANAY Grajeda.
--- NOTE | 2019-01-11 17:37 | NUR ---
[facility] Called
--- NOTE | 2019-01-11 21:52 | NUR ---
The stockroom attendant calls back, given report on pt's data. Spoke with Dante Francois, she relesed the body to the of family's choice. Pt's son notified, they did not choose a home yet, this to be later assigned by the [facility] to which the patient belonged. family informed that the body will be released to [facility] the [facility] for temporary storage, phone # [phone] to the family.
--- NOTE | 2019-01-11 22:09 | NUR ---
SPOKE WITH JANINE AT [facility] AND SHE GOT ALL THE INFO NECCESSARY. SHE WAS ALREADY CONTACTED BY PT'S FAMILY. THE TEAM WILL CALL WITH A ETA. POST MORTEM CARE WILL BE NOW RENDERED.
[2019-01-11] MEDS ORDERED: SODIUM BICARBONATE 8.4% INJ 50ML SYRINGE IV ONE (23:08)
[2019-01-11] MEDS ORDERED: LIDOCAINE HCL 100 MG/5ML (2%) SYRG INJ IV ONE (23:08)
[2019-01-11] MEDS ORDERED: CALCIUM CHLOR(10%) 100MG/ML 10ML SYRINGE IV ONE (23:08)
[2019-01-11] MEDS ORDERED: EPINEPHrine HCL 1 MG/10 ML SYRG IV ONE (23:08)
--- NOTE | 2019-01-11 23:10 | NUR ---
AFFORDABLE [facility]MATIONS TEAM HERE TO [facility] UP THE BODYPROPER IDENTIFICATION TAGS ATTACHED TO BODY AND BAG.
== END 2019-01-11 23:09 | disposition expired | DRG 871 ==
LOC: EDBD 10:20 → ER 10:20 → TELE 19:19 → TELE-WESTW 21:19 → ICU WEST 23:47
PROVIDERS: ADMIT Internal Medicine Cardiovascular Disease; ATTEND Internal Medicine Cardiovascular Disease
PROC: 5A1945Z Respiratory Ventilation, 24-96 Consecutive Hours (ICD-10-PCS; principal; 2019-01-08)
PROC: 0BH17EZ Insertion of Endotracheal Airway into Trachea, Via Natural or Artificial Opening (ICD-10-PCS; 2019-01-08)
PROC: 5A12012 Performance of Cardiac Output, Single, Manual (ICD-10-PCS; 2019-01-08)
PROC: 5A1D70Z Performance of Urinary Filtration, Intermittent, Less than 6 Hours Per Day (ICD-10-PCS; 2019-01-10)
PROC: 02HV33Z Insertion of Infusion Device into Superior Vena Cava, Percutaneous Approach (ICD-10-PCS; 2019-01-10)
DX: A41.9 Sepsis, unspecified organism (principal); J18.9 Pneumonia, unspecified organism; J96.00 Acute respiratory failure, unspecified whether with hypoxia or hypercapnia; N17.0 Acute kidney failure with tubular necrosis; I13.0 Hypertensive heart and chronic kidney disease with heart failure and stage 1 through stage 4 chronic kidney disease, or unspecified chronic kidney disease; J44.0 Chronic obstructive pulmonary disease with (acute) lower respiratory infection; N18.4 Chronic kidney disease, stage 4 (severe); I42.0 Dilated cardiomyopathy; I50.20 Unspecified systolic (congestive) heart failure; I25.10 Atherosclerotic heart disease of native coronary artery without angina pectoris; I46.9 Cardiac arrest, cause unspecified; N05.9 Unspecified nephritic syndrome with unspecified morphologic changes; Z95.810 Presence of automatic (implantable) cardiac defibrillator; Z99.2 Dependence on renal dialysis; I25.2 Old myocardial infarction; Z80.0 Family history of malignant neoplasm of digestive organs; Z82.49 Family history of ischemic heart disease and other diseases of the circulatory system
CPT/HCPCS: 36415; 36600; 51702; 70450; 71045; 80048; 80053; 81001; 82550; 82805; 82962; 83605; 83735; 83880; 84100; 84484; 85025; 85610; 85730; 87040; 87070; 87081; 87086; 87205; 87340; 90935; 93005; 94002; 94003; 96365; 96367; 96372; A6257; G0378; J0696; J1815; J1956; J2250; P9047